=== PATIENT | male | born 1965 | race Caucasian/White ===

== ENCOUNTER 2018-11-04 12:10 | Inpatient (IN) ==
--- NOTE | 2018-11-04 13:01 | ED ---
HPI General Chief Complaint: Altered Mental Status Stated Complaint: ams Time Seen by Provider: 11/04/18 12:36 History of Present Illness HPI narrative: This patient was pulled over by police because he was driving on the wrong side of the road. Paramedics brought him here for altered mental status. The patient is very confused. He does not give a good history or review of systems. He reports that he used to be a heavy alcohol drinker but no longer does. Denies drug use. Denies headache or fever. He does not recognize that he is confused. He says that 4 days ago he fell off a ladder onto his left side. He did not get evaluated. His left side is covered in bruises including his abdomen and back and the left leg. He did not have head injury and has no head or neck pain. Symptoms are severe. Duration is unknown. History is limited. 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 Related Data Home Medications Medication Instructions Recorded Confirmed pantoprazole 40 mg PO DAILY 11/04/18 11/04/18 propranolol 40 mg PO BID 11/04/18 11/04/18 Allergies Allergy/AdvReac Type Severity Reaction Status Date / Time No Known Allergies Allergy Verified 11/04/18 12:15 Review of Systems ROS: all other systems reviewed are negative [facility] Social History Social History Substance History: No History of Abuse Smoking Status: Never smoker How Often Do You Have a Drink Containing Alcohol: Never Recent Travel in [facility] within the Last 8 Weeks: No Recent Out of Country Travel within the Last 8 Weeks: No Immunization History Tetanus Immunization: <5 Years Exam Narrative Exam Narrative: GENERAL: Confused jaundiced patient in no apparent distress. SKIN: Focused skin assessment reveals tiny little pustules on the backs of both hands. He has diffuse jaundice. Skin is Warm and dry. HEAD: Atraumatic. Normocephalic. EYES: Pupils equal and round. Prominent bilateral scleral icterus. No injection or drainage. ENT: No nasal bleeding or discharge. Mucous membranes pink and moist. NECK: Trachea midline. No JVD. No midline tenderness. CARDIOVASCULAR: Regular rate and rhythm. No murmur appreciated. RESPIRATORY: No accessory muscle use. Clear to auscultation. Breath sounds equal bilaterally. GASTROINTESTINAL: Abdomen soft, non-tender, nondistended. Hepatic and splenic margins not palpable. MUSCULOSKELETAL: Has bruising and swelling and a healing scabbed old wound of the mid left tibia. No clubbing. No cyanosis. Bilateral lower extremity edema from the knees down NEUROLOGICAL: Awake and alert. He is very confused. He does not know the month or the year. Motor grossly within normal limits. Normal speech. PSYCHIATRIC: Disinterested and unconcerned mood and affect; insight and judgment poor . Course Initial Documented Vital Signs Temperature 97.5 F L 11/04/18 12:10 Pulse Rate 67 11/04/18 12:10 Respiratory Rate 14 11/04/18 12:10 Blood Pressure 113/59 L 11/04/18 12:10 Pulse Oximetry 98 11/04/18 12:10 Last Documented Vital Signs Temperature 97.5 F L 11/04/18 12:10 Pulse Rate 71 11/04/18 14:45 Respiratory Rate 14 11/04/18 14:45 Blood Pressure 93/50 L 11/04/18 14:45 Pulse Oximetry 100 11/04/18 14:45 Procedures Central Line Placement Right Femoral: Time Out Performed: No Patient Placed on Monitor/Pulse Ox: Yes MD Prep: mask, gown and gloves Central Line Prep: Chlorhexidine scrub and sterile drapes applied Ultrasound Used for Placement: Yes Central Line Lumen Inserted: triple Post Procedure: good blood return, all ports aspirated, flushed, capped and sterile dressing applied Patient Tolerated Procedure: well Complications: none Additional Comments: Patient is so extremely confused that there was no value to written consent forms. He verbally agreed but he does not understand what is going on. No other family members available. He emergently needs placement as he is critically ill. So therefore I had to proceed on his behalf. Critical Care Time Critical Care Time: Yes Total Critical Care Time: 80 Attestation: Aggregate critical care time was 80 minutes. Time to perform other separately billable procedures was not included in the critical care time. My time did not include minutes spent treating any other patients simultaneously or on activities that did not directly contribute to the patient's treatment. The services I provided to this patient were to treat and/or prevent clinically significant deterioration that could result in: Hemorrhagic shock, intracranial hemorrhage, severe metabolic derangement I provided critical care services requiring my management, as noted below: Chart data review, documentation time, medication orders and management, vital sign assessments/reviewing monitor data, ordering and reviewing lab tests, ordering and interpreting/reviewing x-rays and diagnostic studies, care of the patient and discussion of the patient with the admitting physicians. Medical Decision Making MDM Narrative Medical decision making narrative: 53-year-old male with jaundice and confusion. My suspicion is hepatic encephalopathy from liver cirrhosis. Also of concern is this fall from a ladder in a patient likely with thrombocytopenia. I have ordered a massive workup to evaluate both from a standpoint of his altered mental status as well as his fall. CBC reveals significant anemia with hemoglobin of 7.3 as well as thrombocytopenia Rectal exam reveals Hemoccult negative brown stool No evidence of active GI bleed Metabolic profile reveals major abnormalities. He has critical hypo-natremia of 123. This certainly would explain altered mental status. I am going to start 3% sodium chloride solution 25 cc an hour. He has hypokalemia of 3.1. He has renal insufficiency with creatinine 1.6. I have no prior labs to compare to. Chest and tibia x-rays are negative Starting transfusion of 2 units packed red cells. He has borderline hypotension at 100 systolic. Nursing staff could not place IV access. So I placed a right femoral central line under ultrasound guidance. See procedure note. Patient will be going to CT scan now that we have IV access. CT brain is negative. CT of abdomen pelvis shows cirrhotic type changes with some periportal mesenteric edema. Patient is is critically ill and I have placed a call to the block trimmer to discuss. Blood pressure is now 93/50. I have reviewed his situation with his who has now arrived. He is an active alcoholic and heavy drinker. Medical Screen Exam Complete: Yes Emergency Medical Condition: Yes Lab Data Lab results reviewed: Yes I reviewed the patient's lab results. Lab results narrative: His labs are critically abnormal. He is anemic and thrombocytopenic and has low sodium and potassium and renal insufficiency Result diagrams: 11/04/18 12:50 11/04/18 12:50 Lab Results 11/04/18 11/04/18 11/04/18 Range/Units 12:45 12:50 12:50 CBC w Diff WBC (4.0-11.0) th/mm3 RBC (4.50-5.90) mil/mm3 Hgb (13.0-17.0) gm/dL Hct (39.0-51.0) % MCV (80.0-100.0) fL MCH (27.0-34.0) pg MCHC (32.0-36.0) % RDW (11.6-17.2) % Plt Count (150-450) th/mm3 MPV (7.0-11.0) fL Neut % (Auto) (16.0-70.0) % Lymph % (Auto) (9.0-44.0) % Ford % (Auto) (0.0-8.0) % Eos % (Auto) (0.0-4.0) % Baso % (Auto) (0.0-2.0) % Neut # (Auto) (1.8-7.7) th/mm3 Lymph # (Auto) (1.0-4.8) th/mm3 Ford # (Auto) (0.0-0.9) th/mm3 Eos # (Auto) (0.0-0.4) th/mm3 Baso # (Auto) (0.0-0.2) th/mm3 WBC Differential Differential Comment PT 23.7 H (9.8-11.6) sec INR 2.3 Ratio APTT 42.3 H (23.4-31.7) sec Sodium 123 L* (136-145) meq/L Potassium 3.1 L (3.5-5.1) meq/L Chloride 87 L (98-107) meq/L Carbon Dioxide 25.0 (21.0-32.0) meq/L Anion Gap 11 (5-15) meq/L BUN 20 H (7-18) mg/dL Creatinine 1.60 H (0.60-1.30) mg/dL Estimated GFR 46 L (>89) mL/min Random Glucose 82 (74-106) mg/dL Calcium 7.4 L* (8.5-10.1) mg/dL Calcium Adj for Albumin 8.8 (8.5-10.1) mg/dL Magnesium 1.7 (1.5-2.5) mg/dL Total Bilirubin 13.0 H (0.2-1.0) mg/dL AST 154 H (15-37) U/L ALT 60 (12-78) U/L Alkaline Phosphatase 87 (45-117) U/L Ammonia (11-32) mcmol/L Total Protein 8.2 (6.4-8.2) g/dL Albumin 2.2 L (3.4-5.0) g/dL TSH 2.390 (0.358-3.740) uIU/mL Serum Alcohol Less than 3 (0-5) mg/dL MTS Gel Crossmatch See Detail 11/04/18 11/04/18 Range/Units 12:50 12:50 CBC w Diff Auto diff final WBC 9.1 (4.0-11.0) th/mm3 RBC 2.00 L (4.50-5.90) mil/mm3 Hgb 7.3 L (13.0-17.0) gm/dL Hct 21.6 L (39.0-51.0) % MCV 107.9 H (80.0-100.0) fL MCH 36.2 H (27.0-34.0) pg MCHC 33.6 (32.0-36.0) % RDW 17.9 H (11.6-17.2) % Plt Count 103 L (150-450) th/mm3 MPV 7.8 (7.0-11.0) fL Neut % (Auto) 84.0 H (16.0-70.0) % Lymph % (Auto) 7.8 L (9.0-44.0) % Ford % (Auto) 7.4 (0.0-8.0) % Eos % (Auto) 0.1 (0.0-4.0) % Baso % (Auto) 0.7 (0.0-2.0) % Neut # (Auto) 7.6 (1.8-7.7) th/mm3 Lymph # (Auto) 0.7 L (1.0-4.8) th/mm3 Ford # (Auto) 0.7 (0.0-0.9) th/mm3 Eos # (Auto) 0.0 (0.0-0.4) th/mm3 Baso # (Auto) 0.1 (0.0-0.2) th/mm3 WBC Differential . Differential Comment . PT (9.8-11.6) sec INR Ratio APTT (23.4-31.7) sec Sodium (136-145) meq/L Potassium (3.5-5.1) meq/L Chloride (98-107) meq/L Carbon Dioxide (21.0-32.0) meq/L Anion Gap (5-15) meq/L BUN (7-18) mg/dL Creatinine (0.60-1.30) mg/dL Estimated GFR (>89) mL/min Random Glucose (74-106) mg/dL Calcium (8.5-10.1) mg/dL Calcium Adj for Albumin (8.5-10.1) mg/dL Magnesium (1.5-2.5) mg/dL Total Bilirubin (0.2-1.0) mg/dL AST (15-37) U/L ALT (12-78) U/L Alkaline Phosphatase (45-117) U/L Ammonia 46 H (11-32) mcmol/L Total Protein (6.4-8.2) g/dL Albumin (3.4-5.0) g/dL TSH (0.358-3.740) uIU/mL Serum Alcohol (0-5) mg/dL MTS Gel Crossmatch Imaging Data Attestation: I personally reviewed and interpreted this imaging study as follows : My impression: Brain CT negative. Chest x-ray negative. Tibia x-ray negative. Abdomen and pelvis CT shows cirrhotic changes with some periportal edema Radiologist's impression: Abdomen/Pelvis CT 11/04/18 12:43 CONCLUSION: 1. I don't see an intrahepatic biliary duct dilatation. Induration in the mesentery and around the pancreas worse in the head of the pancreas. 2. Pancreatitis would be consideration 3. The edema extends throughout the mesentery suggesting portal hypertension and hepatic failure. Correlation suggested. 4. Focal mass in the pancreas cannot be entirely excluded because of edema. Chest X-Ray 11/04/18 12:43 CONCLUSION: 1. No acute cardiopulmonary disease. Head CT 11/04/18 12:43 CONCLUSION: 1. Negative for acute process . Tibia/Fibula X-Ray 11/04/18 12:48 CONCLUSION: 1. No acute fracture or radiopaque foreign bodies. Discharge Plan Discharge Disposition Patient Disposition: ED Admit(ED Internal Use Only) Discharge Details Diagnosis: Altered mental status, Hyponatremia, Anemia, Alcoholic cirrhosis of liver with ascites Physicians Team ED Provider: Naif Murillo Primary Care Provider: UNKNOWN, Rxs /Orders / Referrals /Forms Prescriptions: No Action propranolol 10 mg Tablet 40 mg PO BID RF: 0 pantoprazole 40 mg Tablet,Delayed Release (Dr/Ec) 40 mg PO DAILY RF: 0 Discharge Interventions Interventions: Vital Signs Last Done: 11/04/18 14:45 Status ED Status: With Doctor
[2018-11-04 13:04] LABS: Baso # (Auto) 0.1 th/mm3 (0.0-0.2); Baso % (Auto) 0.7 % (0.0-2.0); Eos % (Auto) 0.1 % (0.0-4.0); Hematocrit 21.6 % (39.0-51.0); Hemoglobin 7.3 gm/dL (13.0-17.0); Lymph # (Auto) 0.7 th/mm3 (1.0-4.8); Lymph % (Auto) 7.8 % (9.0-44.0); Mean Corpuscular HGB Conc 33.6 % (32.0-36.0); Mean Corpuscular Hemoglobin 36.2 pg (27.0-34.0); Mean Corpuscular Volume 107.9 fL (80.0-100.0); Mean Platelet Volume 7.8 fL (7.0-11.0); Mono # (Auto) 0.7 th/mm3 (0.0-0.9); Mono % (Auto) 7.4 % (0.0-8.0); Neut # (Auto) 7.6 th/mm3 (1.8-7.7); Platelet Count 103 th/mm3 (150-450); Red Cell Distribution Width 17.9 % (11.6-17.2); White Blood Count 9.1 th/mm3 (4.0-11.0)
[2018-11-04 13:14] LABS: Activated Partial Thrombo Time 42.3 sec (23.4-31.7); INR 2.3 Ratio; Prothrombin Time 23.7 sec (9.8-11.6)
[2018-11-04 13:15] LABS: Chloride 87 meq/L (98-107); Potassium 3.1 meq/L (3.5-5.1)
[2018-11-04 13:22] LABS: Alanine Aminotransferase 60 U/L (12-78); Albumin 2.2 g/dL (3.4-5.0); Alkaline Phosphatase 87 U/L (45-117); Anion Gap 11 meq/L (5-15); Aspartate Aminotransferase 154 U/L (15-37); Blood Urea Nitrogen 20 mg/dL (7-18); Calcium 7.4 mg/dL (8.5-10.1); Glomerular Filtration Rate 46 mL/min (>89); Glucose,Random 82 mg/dL (74-106); Magnesium 1.7 mg/dL (1.5-2.5); Total Protein 8.2 g/dL (6.4-8.2)
[2018-11-04 13:23] LABS: Sodium 123 meq/L (136-145)
--- NOTE | 2018-11-04 13:26 | XR ---
EXAM DATE: 11/04/2018 1:19 PM EST AGE/SEX: 53 years / Male INDICATIONS: Post fall, Chest Pain CLINICAL DATA: This is the patient's initial encounter. Patient reports that signs and symptoms have been present for 1 day and indicates a pain score of 0/10. MEDICAL/SURGICAL HISTORY: None. None. COMPARISON: No prior exams available for comparison. FINDINGS: A single AP view of the chest demonstrates the lungs to be symmetrically aerated without evidence of mass, infiltrate or effusion. The cardiomediastinal contours are unremarkable. Osseous structures a re intact. CONCLUSION: 1. No acute cardiopulmonary disease. Electronically signed by: Avni Cárdenas MD 11/04/2018 1:24 PM EST
--- NOTE | 2018-11-04 13:34 | XR ---
EXAM DATE: 11/04/2018 1:19 PM EST AGE/SEX: 53 years / Male INDICATIONS: Left lower leg pain, Laceration on anterior side of leg CLINICAL DATA: This is the patient's initial encounter. Patient reports that signs and symptoms have been present for 1 day and indicates a pain score of 0/10. MEDICAL/SURGICAL HISTORY: None. None. COMPARISON: No prior exams available for comparison. FINDINGS: Bony structures are intact and in normal alignment. Osseous density is normal. Soft tissues are unre markable. No radiopaque foreign bodies seen. CONCLUSION: 1. No acute fracture or radiopaque foreign bodies. Electronically signed by: Avni Cárdenas MD 11/04/2018 1:33 PM EST
--- NOTE | 2018-11-04 14:24 | CT ---
EXAM DATE: 11/04/2018 2:22 PM EST AGE/SEX: 53 years / Male INDICATIONS: Altered mental status. Pulled over for erratic driving. Poor historian. CLINICAL DATA: This is the patient's initial encounter. Patient reports that signs and symptoms have been present for 1 day and indicates a pain score of Nonresponsive. MEDICAL/SURGICAL HISTORY: None. None. RADIATION DOSE: 59.98 CTDI (mGy) COMPARISON: No prior exams available for comparison. TECHNIQUE: CT of the head without contrast. Using automated exposure control and adjustment of the mA and/or kV according to patient size, radiation dose was kept as low as reasonably achievable to ob tain optimal diagnostic quality images. DICOM format image data is available electronically for revi ew and comparison. FINDINGS: Cerebrum: The ventricles are normal for age. No evidence of midline shift, mass lesion, hemorrhage or acute infarction. No extraaxial fluid collections are seen. Posterior Fossa: The cerebellum and brainstem are intact. The 4th ventricle is midline. The cerebe llopontine angle is unremarkable. Extracranial: The visualized portion of the orbits is intact. Skull: The calvaria is intact. No evidence of skull fracture. CONCLUSION: 1. Negative for acute process . Electronically signed by: Carlos Valentin MD 11/04/2018 2:23 PM EST
--- NOTE | 2018-11-04 14:49 | CT ---
EXAM DATE: 11/04/2018 2:31 PM EST AGE/SEX: 53 years / Male INDICATIONS: Patient is notably jaundice. Altered mental status and a poor historian. CLINICAL DATA: This is the patient's initial encounter. Patient reports that signs and symptoms have been present for 1 day and indicates a pain score of Nonresponsive. MEDICAL/SURGICAL HISTORY: None. None. ORAL CONTRAST: No oral contrast ingested. RADIATION DOSE: 5.41 CTDI (mGy) COMPARISON: No prior exams available for comparison. TECHNIQUE: Multiple contiguous axial images were obtained through the abdomen and pelvis following b olus infusion of 85 ml Omnipaque 350 (iohexol) nonionic water-soluble contrast as a single exam dos e. No oral contrast ingested. Using automated exposure control and adjustment of the mA and/or kV ac cording to patient size, radiation dose was kept as low as reasonably achievable to obtain optimal di agnostic quality images. DICOM format image data is available electronically for review and comparis on. FINDINGS: The lower lungs are clear. The liver is small and nodular without intrahepatic biliary ductal dilatation. Spleen is prominent. Gallbladder is partially collapsed. There is mesenteric induration that involves most of the pancreas and peripancreatic fat. This indura tion extends along the duodenum involves the head of the pancreas. The SMA and SMV are patent. The po rtal vein is small and patent. There is mesenteric edema extending into the right lower quadrant with trace ascites evident. The bladder prostate and seminal vesicles unremarkable Abdominal shea intact Moderate vascular calcifications are evident. Review of bone windows reveals only degenerative changes. CONCLUSION: 1. I don't see an intrahepatic biliary duct dilatation. Induration in the mesentery and around the p ancreas worse in the head of the pancreas. 2. Pancreatitis would be consideration 3. The edema extends throughout the mesentery suggesting portal hypertension and hepatic failure. Co rrelation suggested. 4. Focal mass in the pancreas cannot be entirely excluded because of edema. Electronically signed by: Carlos Valentin MD 11/04/2018 2:47 PM EST
[2018-11-04] MEDS ORDERED: Sodium Chlor 0.9% Inj 250 ML IV.SIG SCH (15:00)
[2018-11-04] MEDS ORDERED: Bisacodyl 10 MG Supp RECTAL PRN (15:05)
[2018-11-04] MEDS ORDERED: Sod Chloride 0.9% Inj 1,000 ML IV.CONT SCH (15:15)
[2018-11-04 15:51] LABS: Creatine Kinase 268 U/L (39-308); Lipase 260 U/L (73-393)
[2018-11-04] MEDS ORDERED: Magnesium Sulfate Inj 2 GM in Sodium Chlor 0.9% Inj 96 ML IV.SIG ONE (16:00)
[2018-11-04] MEDS ORDERED: LORazepam 1 MG Tablet PO PRN (16:10)
[2018-11-04] MEDS ORDERED: Haloperidol Inj 5 MG/ML Ampul IV.PUSH PRN (16:10)
[2018-11-04] MEDS ORDERED: Norepinephrine Inj 16 MG in Sodium Chlor 0.9% Inj 234 ML IV.CONT PRN (17:00)
[2018-11-04] MEDS ORDERED: Potassium Chlor 20 mEq Premix 20 MEQ/100 ML PIGGYBACK IV.SIG ONE (17:32)
[2018-11-04] MEDS ORDERED: Phytonadione Inj 10 MG in Sodium Chlor 0.9% Inj 50 ML IV.SIG ONE (17:36)
--- NOTE | 2018-11-04 17:52 | P.HPCC ---
History of Present Illness Service: Critical care medicine Primary Care Physician: UNKNOWN Chief Complaint: Altered mental status History of Present Illness: This is a 53-year-old male. Admission 11/04/2018. Past medical history includes EtOH abuse and hypertension. He is unable to give any additional information the present time. His is currently unavailable. Today, the patient was pulled over because he was driving on the wrong side of the road. Paramedics brought him to [facility] emergency department for altered mental status. He reports that he used to be a heavy alcohol drinker but has not consumed alcohol in 3 days. Denies drug use. Denies headache or fever. He does not recognize that he is confused. He says that 4 days ago he fell off a ladder onto his left side. He did not get evaluated. His left side is covered in bruises including his abdomen and back and the left leg. He did not have head injury and has no head or neck pain. CT of the head revealed no acute intracranial findings. CT of the abdomen/ pelvis revealed mesenteric induration perinephric fat. The SMA and SMV are patent. Cannot rule out pancreatic head mass. Patient was transferred to [facility] for further evaluation treatment. On arrival, patient has large ecchymosis involving his left flank, right hip. Patient has an bites on his wrist bilaterally. He is oriented to person and time only. Not place. Moving all 4 extremity spontaneously. Blood sugar 78. Urine toxicology screen pending. - Diagnosis (1) Hypopotassemia (2) Total bilirubin, elevated (3) Thrombocytopenia (4) Macrocytic anemia (5) Hyperammonemia (6) Hypoalbuminemia (7) ETOH abuse (8) Altered mental status (9) Hyponatremia (10) Alcoholic cirrhosis of liver with ascites (11) Elevated AST (SGOT) Inpatient Certification: I certify that the inpatient services were ordered in accordance with Medicare regulations governing the order. This includes certification that hospital inpatient services are reasonable and necessary and in the case of services not specified as inpatient-only under 42 CFR 419.22(n), that they are appropriately provided as inpatient services in accordance to with the 2-midnight benchmark under 43 CFR 412.3(e) Estimated Total Length of Stay (Days): 5 Plans for Post Hospital Care: Not yet determined Review of Systems unobtainable due to mental condition PMFSH - History History Provided By: Patient - Medical History Medical History: Medical History (Last Reviewed 11/04/18 @ 12:17 by Jayashree Luu RN) Medical history unknown - Surgical History Surgical History: Surgical History (Last Updated 11/04/18 @ 17:43 by Neo Sarmiento MD) Surgical history unknown - Family History Family History: Family History (Last Updated 11/04/18 @ 17:43 by Neo Sarmiento MD) Other Family history unknown - Social History I have reviewed the patient's Social History: Yes - Tobacco History Second Hand Smoke Exposure: No Smoking Status: Never smoker - Alcohol History How Often Do You Have a Drink Containing Alcohol: 2 to 4 times a month - Substance Use History Substance History: Unable to Obtain - Travel History History of Recent Travel: Yes Recent Travel in the [place] Within the Last 8 Weeks: No Recent Travel Out of the Country Within the Last 8 Weeks: No - Immunization History Tetanus Immunization: <5 Years Medications and Allergies Active Medications: Active Medications Al Hydroxide/Mg Hydroxide (Milk Of Magnvinh Liq) 30 ml PO Q12H PRN PRN Reason: Mild Constipation Albuterol (Albuterol Neb (Prn)) 2.5 mg NEB Q2HR NEB PRN PRN Reason: SHORTNESS OF BREATH/WHEEZING Albuterol (Duoneb Neb (Otilia)) 1 ampul NEB Q4HR NEB OTILIA Bisacodyl (Dulcolax Supp) 10 mg RECTAL DAILY PRN PRN Reason: SEVERE CONSITIPATION Chlorhexidine Gluconate (Chlorhexidine 2% Cloth) 3 pack TOPICAL DAILY@0400 OTILIA Stop: 11/10/18 03:59 Chlorhexidine Gluconate (Chlorhexidine 2% Cloth) 3 pack TOPICAL DAILY@0400 PRN PRN Reason: Extra cloth needed Stop: 11/10/18 03:59 Flumazenil (Romazecon Inj) 0.2 mg IV.PUSH Q1M PRN PRN Reason: OVERSEDATION Haloperidol Lactate (Haldol Inj) 1 mg IV.PUSH Q15M PRN PRN Reason: for severe agitation Sodium Chloride (Sodium Chloride 3% Inj) 250 mls @ 25 mls/hr IV.SIG ONCE ONE Stop: 11/05/18 00:01 Last Admin: 11/04/18 14:39 Dose: 25 mls/hr Sodium Chloride (Ns Inj) 250 mls @ 15 mls/hr IV.SIG ONCE OTILIA Stop: 11/05/18 07:39 Sodium Chloride (Ns Inj) 1,000 mls @ 84 mls/hr IV.CONT .[id number] OTILIA Magnesium Sulfate 2 gm/ Sodium (Chloride) 100 mls @ 50 mls/hr IV.SIG ONCE ONE Stop: 11/04/18 17:59 Last Admin: 11/04/18 15:40 Dose: 50 mls/hr Norepinephrine Bitartrate 16 (mg/ Sodium Chloride) 250 mls @ 1.87 mls/hr IV.CONT TITRATE PRN; Protocol PRN Reason: See Protocol Multivitamins 10 ml/ Thiamine HCl 100 mg/ Folic Acid 1 mg/Sodium Chloride 511.2 mls @ 125 mls/hr IV.SIG Q24H OTILIA Stop: 11/07/18 13:06 Phytonadione 10 mg/ Sodium (Chloride) 51 mls @ 102 mls/hr IV.SIG ONCE ONE Stop: 11/04/18 18:05 Lactulose (Lactulose Liq) 30 ml PO DAILY PRN PRN Reason: SEVERE CONSITIPATION Lorazepam (Ativan) 1 mg PO Q4H PRN PRN Reason: for CIWA 8-10 Lorazepam (Ativan) 2 mg PO Q2H PRN PRN Reason: for CIWA 11-14 Lorazepam (Ativan Inj) 2 mg IV.PUSH Q2H PRN PRN Reason: for CIWA 11-14 Lorazepam (Ativan Inj) 2 mg IV.PUSH Q15M PRN PRN Reason: for CIWA > 20 Lorazepam (Ativan Inj) 1 mg IV.PUSH Q4H PRN PRN Reason: for CIWA 8-10 Lorazepam (Ativan Inj) 2 mg IV.PUSH Q1H PRN PRN Reason: for CIWA 15-20 Ondansetron HCl (Zofran Inj) 4 mg IV.PUSH Q6H PRN PRN Reason: NAUSEA OR VOMITING Pantoprazole Sodium (Protonix Inj) 40 mg IV.PUSH DAILY [facility] Senna/Docusate Sodium (Denise-Colace) 1 tab PO BID [facility] Sennosides (Senokot) 17.2 mg PO Q12H PRN PRN Reason: Moderate Constipation Sodium Chloride (Ns Flush) 2 ml IV.FLUSH BID [facility] Sodium Chloride (Ns Flush) 2 ml IV.FLUSH PRN PRN PRN Reason: FLUSH AFTER USING IV ACCESS Terbutaline Sulfate (Brethine Inj) 1 mg SQ UNSCH PRN PRN Reason: For Extravasation Allergies Allergy/AdvReac Type Severity Reaction Status Date / Time No Known Allergies Allergy Verified 11/04/18 12:15 Home Medications Medication Instructions Recorded Confirmed Type pantoprazole 40 mg PO DAILY 11/04/18 11/04/18 History propranolol 40 mg PO BID 11/04/18 11/04/18 History Results - Labs CBC & Chem 7: 11/04/18 12:50 11/04/18 12:50 Labs: Short CBC 11/04/18 Range/Units 12:50 WBC 9.1 (4.0-11.0) th/mm3 Hgb 7.3 L (13.0-17.0) gm/dL Hct 21.6 L (39.0-51.0) % Plt Count 103 L (150-450) th/mm3 BMP 11/04/18 12:50 Sodium 123 L* Potassium 3.1 L Chloride 87 L Carbon Dioxide 25.0 BUN 20 H Creatinine 1.60 H Calcium 7.4 L* Cardiac Enzymes 11/04/18 Range/Units 12:50 Total Creatine Kinase 268 (39-308) U/L Liver Function 11/04/18 Range/Units 12:50 Total Bilirubin 13.0 H (0.2-1.0) mg/dL AST 154 H (15-37) U/L ALT 60 (12-78) U/L Alkaline Phosphatase 87 (45-117) U/L Albumin 2.2 L (3.4-5.0) g/dL - Imaging Impressions Abdomen/Pelvis CT 11/04/18 12:43 CONCLUSION: 1. I don't see an intrahepatic biliary duct dilatation. Induration in the mesentery and around the pancreas worse in the head of the pancreas. 2. Pancreatitis would be consideration 3. The edema extends throughout the mesentery suggesting portal hypertension and hepatic failure. Correlation suggested. 4. Focal mass in the pancreas cannot be entirely excluded because of edema. Chest X-Ray 11/04/18 12:43 CONCLUSION: 1. No acute cardiopulmonary disease. Head CT 11/04/18 12:43 CONCLUSION: 1. Negative for acute process . Tibia/Fibula X-Ray 11/04/18 12:48 CONCLUSION: 1. No acute fracture or radiopaque foreign bodies. Exam Vital signs: Vital Signs 11/04/18 12:10 11/04/18 12:50 11/04/18 13:15 Temperature 97.5 F L Pulse Rate 67 72 68 Respiratory Rate 14 12 Blood Pressure 113/59 L 101/55 L Pulse Oximetry 98 98 100 11/04/18 13:16 11/04/18 13:35 11/04/18 14:45 Temperature Pulse Rate 65 68 71 Respiratory Rate 18 14 14 Blood Pressure 101/55 L 101/61 93/50 L Pulse Oximetry 100 98 100 11/04/18 15:00 11/04/18 15:15 11/04/18 15:30 Temperature Pulse Rate 62 69 68 Respiratory Rate 14 12 12 Blood Pressure 95/51 L 109/50 L 98/48 L Pulse Oximetry 97 98 100 11/04/18 16:45 Temperature Pulse Rate 68 Respiratory Rate 14 Blood Pressure 90/51 L Pulse Oximetry 98 Intake & Output 11/03/18 11/04/18 11/04/18 18:59 06:59 18:59 Weight 69.1 kg - Constitutional no acute distress - Routine HEENT Exam Head: Present: normocephalic, atraumatic Eye: Present: EOMI, PERRL, conjunctival icterus ENT: Present: mucous membranes moist - Routine Neck Exam Present: supple, full ROM. Absent: JVD, tenderness - Routine Chest/Breast/Axilla Exam Chest wall: Absent: tenderness Breast: Absent: tenderness Axillae: Absent: lymphadenopathy - Routine Respiratory Exam Present: CTA bilaterally. Absent: accessory muscle use - Routine Cardiovascular Exam Present: RRR, S1, S2. Absent: murmur - Routine Abdominal Exam Present: normoactive bowel sounds, distended. Absent: tenderness, wound - Routine Extremities Exam Present: edema. Absent: cyanosis, clubbing, pallor - Routine Skin Exam Present: intact, ecchymosis - Routine Neurological Exam Present: alert, CN II-XII intact. Absent: oriented X3 (Oriented to person and time), sensory deficit, motor deficit Septic Shock Reassessment Septic shock perfusion: reassessment completed Caprini VTE Risk Assessment Caprini VTE Risk Assessment: Moderate/High Risk (score >= 2) VTE Pharmacological Exception Reason: Coagulopathy,INR elevated Caprini Risk Assessment Model: Point Value = 1 Point Value = 2 Point Value = 3 Point Value = 5 Age 41-60 Minor surgery BMI > 25 kg/m2 Swollen legs Varicose veins or History of unexplained or recurrent spontaneous Oral contraceptives or hormone replacement Sepsis (< 1 month) Serious lung disease, including pneumonia (< 1 month) Abnormal pulmonary function Acute myocardial infarction Congestive heart failure (< 1 month) History of inflammatory bowel disease Medical patient at bed rest Age 61-74 Arthroscopic surgery Major open surgery (> 45 min) Laparoscopic surgery (> 45 min) Malignancy Confined to bed (> 72 hours) Immobilizing plaster cast Central venous access Age >= 75 History of VTE Family history of VTE Factor V Leiden Prothrombin [id number] Lupus anticoagulant Anticardiolipin antibodies Elevated serum homocysteine Heparin-induced thrombocytopenia Other congenital or acquired thrombophilia Stroke (< 1 month) Elective arthroplasty Hip, pelvis, or leg fracture Acute spinal cord injury (< 1 month) Prophylaxis Regimen: Total Risk Factor Score Risk Level Prophylaxis Regimen 0-1 Low Early ambulation 2 Moderate Order ONE of the following: *Sequential Compression Device (SCD) *Heparin 5000 units SQ BID 3-4 Higher Order ONE of the following medications: *Heparin 5000 units SQ TID *Enoxaparin/Lovenox 40 mg SQ daily (WT < 150 kg, CrCl > 30 mL/min) *Enoxaparin/Lovenox 30 mg SQ daily (WT < 150 kg, CrCl > 10-29 mL/min) *Enoxaparin/Lovenox 30 mg SQ BID (WT < 150 kg, CrCl > 30 mL/min) AND/OR *Sequential Compression Device (SCD) 5 or more Highest Order ONE of the following medications: *Heparin 5000 units SQ TID (Preferred with Epidurals) *Enoxaparin/Lovenox 40 mg SQ daily (WT < 150 kg, CrCl > 30 mL/min) *Enoxaparin/Lovenox 30 mg SQ daily (WT < 150 kg, CrCl > 10-29 mL/min) *Enoxaparin/Lovenox 30 mg SQ BID (WT < 150 kg, CrCl > 30 mL/min) AND *Sequential Compression Device (SCD) Assessment and Plan - Problem List (1) Hypopotassemia Code(s): E87.6 - Hypokalemia Status: Acute (2) Total bilirubin, elevated Code(s): R17 - Unspecified jaundice Status: Acute (3) Thrombocytopenia Code(s): D69.6 - Thrombocytopenia, unspecified Status: Acute (4) Macrocytic anemia Code(s): D53.9 - Nutritional anemia, unspecified Status: Acute (5) Hyperammonemia Code(s): E72.20 - Disorder of urea cycle metabolism, unspecified Status: Acute (6) Hypoalbuminemia Code(s): E88.09 - Other disorders of plasma-protein metabolism, not elsewhere classified Status: Acute (7) ETOH abuse Code(s): F10.10 - Alcohol abuse, uncomplicated Status: Acute (8) Altered mental status Code(s): R41.82 - Altered mental status, unspecified Status: Acute (9) Hyponatremia Code(s): E87.1 - Hypo-osmolality and hyponatremia Status: Acute (10) Alcoholic cirrhosis of liver with ascites Code(s): K70.31 - Alcoholic cirrhosis of liver with ascites Status: Acute (11) Elevated AST (SGOT) Code(s): R74.0 - Nonspecific elevation of levels of transaminase and lactic acid dehydrogenase [LDH] Status: Acute - Assessment and Plan Plan: Neuro/Psych: Acute encephalopathy likely secondary to elevated ammonia EtOH abuse CT brain revealed no acute intracranial abnormalities CIWA protocol initiated Vitamin bag daily times 3 days. No acetaminophen with elevated LFTs Monitor for DTs CV: Received normal saline 1 L at [facility]. As needed norepinephrine all central lines in place Follow-up on lactate, CPK, troponin EKG and Currently D5 normal saline at 100 cc an hour Holding propranolol 40 mg twice daily/home medication Resp: Nasal cannula to maintain saturations greater than equal 92% Incentive spirometry while awake Albuterol/ipratropium aerosols every 4 hours with albuterol aerosols every 2 hours as needed dyspnea X-ray chest on admission revealed no acute acute cardia pulmonary findings GI: Elevated total bilirubin Elevated AST Elevated ammonia Hypoalbuminemia Mesenteric induration on CT abdomen/pelvis N.p.o. status except for medications Pantoprazole for GI prophylaxis Docusate serum/senna 1 tablet twice daily for bowel regimen Lactulose 30 cc twice daily/recheck ammonia level in a.m. CT abdomen/pelvis revealed mesenteric induration along with peritoneal fat. No intra-hepatic biliary ductal dilatation. SMA/SMV are patent. Currently has no abdominal pain. Lactic acid pending : Straight catheterization as needed Endo: Sliding scale insulin Accu-Cheks to maintain euglycemia/every 6 hours aspart insulin TSH was 2.39 Renal: Acute kidney injury unknown baseline Monitor urine output Accurate I's and O's CT abdomen/pelvis revealed no signs of hydronephrosis Check urine eosinophils, sodium and creatinine Heme: Macrocytic anemia Thrombocytopenia Coagulopathy Transfuse 2 units PRBCs 1 FFP. 10 mg vitamin K IV x1. Recheck coags in a.m. with fibrinogen Check CBC in a.m. 09/05 Hemoccult ordered ID: No signs of active bleeding. Monitor for signs of and symptomatology of infection FEN: Hypopotassemia Hyponatremia 40 mEq potassium chloride IV x1 now. Discontinue hypertonic saline Replace electrolytes as clinically indicated per ICU electrolyte protocol Currently D5 normal saline at 100 cc an hour MSK: Large right flank ecchymosis PT evaluate and treat gait assessment Left tib/fib shows no signs of fracture Access: -Utilize peripheral AP will discontinue right femoral central line Prophylaxis -GI -pantoprazole -DVT -SCD/holding pharmacologic prophylaxis in light of elevated INR/PTT Level 3 admission Code Status: Full code Discussed Condition With: Patient. is currently unavailable. Care plan discussed and all questions answered. (8) Altered mental status Qualifiers: Altered mental status type: delirium Qualified Code(s): R41.0 - Disorientation, unspecified
--- NOTE | 2018-11-04 18:53 | US ---
EXAM DATE: 11/04/2018 6:45 PM EST AGE/SEX: 53 years / Male INDICATIONS: Elevated lab values. CLINICAL DATA: This is the patient's initial encounter. Patient reports that signs and symptoms have been present for 1 day and indicates a pain score of 3/10. MEDICAL/SURGICAL HISTORY: . Unable to obtain med history. . Unable to obtain surgical history. COMPARISON: [facility], CT ABDOMEN & PELVIS W CONTRAST, 11/04/2018. . MEASUREMENTS: Liver:__ 16.3 cm. Common Bile Duct:__ Nonvisualized. Right Kidney:__ 11.4 x 4.7 x 6.4 cm. FINDINGS: Liver: Increased echogenicity without focal lesion or ductal dilatation. Portal Vein: Pulsatile flow seen in portal vein. Common Duct: No intraluminal mass or stone visualized. Gallbladder: Extensive gallbladder sludge without significant gallbladder wall thickening. Pancreas: Peripancreatic edema noted. Right Kidney: Normal echogenicity and cortical thickness. No mass or hydronephrosis. Other: None. CONCLUSION: 1. Liver appears cirrhotic with mild lobulation. 2. Small right pleural effusion noted. 3. Mild ascites. Extensive gallbladder sludge. Common bile duct not visualized. 4. Probable bidirectional flow in the main portal vein. Electronically signed by: Joseph Sanchez MD 11/04/2018 6:51 PM EST
[2018-11-04] MEDS: Dextrose 5%/NaCl 0.9% Inj 1,000 ML IV.CONT SCH (19:40)
[2018-11-04 20:32] LABS: Uric Acid 6.3 mg/dl (2.6-7.2)
[2018-11-04 21:18] LABS: Hepatitits B Surface Antigen Nonreactive (Nonreactive)
[2018-11-04 21:37] LABS: Hepatitis A IgM Antibody Nonreactive (Nonreactive)
[2018-11-04 23:42] LABS: Activated Partial Thrombo Time 45.4 sec (23.4-31.7); Amylase 72 U/L (25-115); INR 1.9 Ratio; Prothrombin Time 19.7 sec (9.8-11.6)
[2018-11-04] MEDS: Senna/Docusate Sodium 8.6/50 MG Tablet PO SCH (23:46)
[2018-11-05] MEDS: Chlorhexidine Gluconate 2% 1 Pack (2 Cloths) TOPICAL SCH (03:24)
[2018-11-05 03:53] LABS: Baso % (Auto) 0.2 % (0.0-2.0); Hematocrit 24.3 % (39.0-51.0); Hemoglobin 8.5 gm/dL (13.0-17.0); Lymph # (Auto) 0.4 th/mm3 (1.0-4.8); Mean Corpuscular Hemoglobin 34.9 pg (27.0-34.0); Mean Corpuscular Volume 99.8 fL (80.0-100.0); Mean Platelet Volume 7.4 fL (7.0-11.0); Mono # (Auto) 0.4 th/mm3 (0.0-0.9); Mono % (Auto) 8.6 % (0.0-8.0); Neut # (Auto) 4.3 th/mm3 (1.8-7.7); Neut % (Auto) 84.2 % (16.0-70.0); Platelet Count 41 th/mm3 (150-450); Red Blood Count 2.44 mil/mm3 (4.50-5.90); Red Cell Distribution Width 20.3 % (11.6-17.2); White Blood Count 5.1 th/mm3 (4.0-11.0)
[2018-11-05] MEDS ORDERED: Chlorhexidine Gluconate 2% 1 Pack (2 Cloths) TOPICAL PRN (04:00)
[2018-11-05 04:22] LABS: Albumin 1.9 g/dL (3.4-5.0); Calcium 6.8 mg/dL (8.5-10.1); Carbon Dioxide 25.8 meq/L (21.0-32.0); Phosphorus 2.3 mg/dL (2.5-4.9); Total Protein 7.1 g/dL (6.4-8.2)
[2018-11-05] MEDS ORDERED: Magnesium Sulfate Inj 4 GM in Sodium Chlor 0.9% Inj 92 ML IV.SIG PRN (04:29)
[2018-11-05] MEDS ORDERED: Magnesium Sulfate Inj 2 GM in Sodium Chlor 0.9% Inj 96 ML IV.SIG PRN (04:29)
[2018-11-05] MEDS ORDERED: Potassium Chloride 25 MEQ Effervescent Tablet PO PRN (04:29)
[2018-11-05] MEDS ORDERED: Potassium Phosphate 500 MG Soluble Tablet PO PRN ×2 (04:29)
[2018-11-05] MEDS ORDERED: Potassium Chlor 20 mEq Premix 20 MEQ/100 ML PIGGYBACK IV.SIG PRN ×2 (04:29)
[2018-11-05] MEDS ORDERED: Sodium Phosphate Inj 30 MMOL in Sodium Chlor 0.9% Inj 250 ML IV.SIG PRN (04:29)
[2018-11-05] MEDS ORDERED: Potassium Phosphate Inj 30 MMOL in Sodium Chlor 0.9% Inj 250 ML IV.SIG PRN (04:29)
[2018-11-05] MEDS ORDERED: Magnesium Oxide 400 MG Tablet PO PRN (04:29)
[2018-11-05] MEDS ORDERED: Potassium Chlor 40 mEq Premix 40 MEQ/100 ML PIGGYBACK IV.SIG PRN (04:29)
[2018-11-05] MEDS ORDERED: Calcium Chloride Inj 2 GM in Sodium Chlor 0.9% Inj 100 ML IV.SIG ONE (04:31)
[2018-11-05 04:35] LABS: Bilirubin,Urine Negative (Negative); Clarity,Urine Clear (Clear); Color,Urine Amber (Yellw/Straw); Glucose,Urine (UA) Negative (Negative); Leukocyte Esterase,Urine Trace (Negative); Mucus,Urine Few /lpf (Occasional); Nitrite,Urine Negative (Negative); Renal Epithelial Cells,Urine <1 /hpf
[2018-11-05 04:36] LABS: Urobilinogen,Urine 0.2 mg/dL (Less than 2)
[2018-11-05 04:52] LABS: Platelet Morphology Normal (Normal)
[2018-11-05 04:53] LABS: Toxic Granulation 1+
[2018-11-05] MEDS: Potassium Chlor 40 mEq Premix 40 MEQ/100 ML PIGGYBACK IV.SIG PRN ×2 (04:58→13:00)
[2018-11-05] MEDS ORDERED: Sodium Chlor 0.9% Inj 250 ML IV.SIG SCH (05:00)
[2018-11-05] MEDS: Dextrose 5%/NaCl 0.9% Inj 1,000 ML IV.CONT SCH ×3 (05:07→23:33)
--- NOTE | 2018-11-05 07:08 | P.PNCC ---
Subjective Subjective Remarks/Hospital Course: This is a 53-year-old male. Admission 11/04/2018. Past medical history includes EtOH abuse and hypertension. He is unable to give any additional information the present time. His is currently unavailable. Today, the patient was pulled over because he was driving on the wrong side of the road. Paramedics brought him to [facility] emergency department for altered mental status. He reports that he used to be a heavy alcohol drinker but has not consumed alcohol in 3 days. Denies drug use. Denies headache or fever. He does not recognize that he is confused. He says that 4 days ago he fell off a ladder onto his left side. He did not get evaluated. His left side is covered in bruises including his abdomen and back and the left leg. He did not have head injury and has no head or neck pain. CT of the head revealed no acute intracranial findings. CT of the abdomen/ pelvis revealed mesenteric induration perinephric fat. The SMA and SMV are patent. Cannot rule out pancreatic head mass. Patient was transferred to [facility] for further evaluation treatment. On arrival, patient has large ecchymosis involving his left flank, right hip. Patient has an bites on his wrist bilaterally. He is oriented to person and time only. Not place. Moving all 4 extremity spontaneously. Blood sugar 78. Urine toxicology screen pending. SUBJECTIVE: 11/05: Objective Vital Signs / I&O: Vital Signs 11/04/18 12:10 11/04/18 12:50 11/04/18 13:15 Temperature 97.5 F L Pulse Rate 67 72 68 Respiratory Rate 14 12 Blood Pressure 113/59 L 101/55 L Pulse Oximetry 98 98 100 11/04/18 13:16 11/04/18 13:35 11/04/18 14:45 Temperature Pulse Rate 65 68 71 Respiratory Rate 18 14 14 Blood Pressure 101/55 L 101/61 93/50 L Pulse Oximetry 100 98 100 11/04/18 15:00 11/04/18 15:15 11/04/18 15:30 Temperature Pulse Rate 62 69 68 Respiratory Rate 14 12 12 Blood Pressure 95/51 L 109/50 L 98/48 L Pulse Oximetry 97 98 100 11/04/18 16:45 11/04/18 20:00 11/04/18 20:02 Temperature 97.9 F Pulse Rate 68 64 63 Respiratory Rate 14 10 L Blood Pressure 90/51 L 95/52 L Pulse Oximetry 98 100 97 11/04/18 21:34 11/04/18 21:39 11/04/18 22:00 Temperature 97.5 F L 97.5 F L Pulse Rate 65 66 63 Respiratory Rate 11 L 20 16 Blood Pressure 90/49 L 93/50 L Pulse Oximetry 99 99 99 11/04/18 22:30 11/04/18 23:00 11/04/18 23:30 Temperature Pulse Rate 63 62 64 Respiratory Rate 13 10 L 13 Blood Pressure 98/57 L 107/57 L 98/53 L Pulse Oximetry 100 100 99 11/04/18 23:58 11/05/18 00:00 11/05/18 00:01 Temperature 97.9 F 97.6 F Pulse Rate 61 64 62 Respiratory Rate 13 17 14 Blood Pressure 98/53 L 98/53 L Pulse Oximetry 98 100 100 11/05/18 00:30 11/05/18 01:00 11/05/18 01:31 Temperature Pulse Rate 63 63 63 Respiratory Rate 21 25 H 24 Blood Pressure 98/55 L 106/53 L 101/53 L Pulse Oximetry 100 100 100 11/05/18 02:00 11/05/18 02:30 11/05/18 03:00 Temperature Pulse Rate 63 63 61 Respiratory Rate 18 17 24 Blood Pressure 97/50 L 104/55 L 118/60 Pulse Oximetry 100 100 100 11/05/18 03:31 11/05/18 03:42 11/05/18 04:00 Temperature Pulse Rate 61 75 60 Respiratory Rate 18 18 17 Blood Pressure 94/53 L 103/65 Pulse Oximetry 100 100 11/05/18 04:45 11/05/18 05:00 11/05/18 05:30 Temperature 97.6 F Pulse Rate 64 62 68 Respiratory Rate 18 28 H 17 Blood Pressure 102/58 L 108/67 109/72 Pulse Oximetry 93 L 100 96 11/05/18 06:00 11/05/18 06:31 Temperature 98.1 F Pulse Rate 69 88 Respiratory Rate 18 28 H Blood Pressure 120/58 L 127/56 L Pulse Oximetry 99 100 Intake & Output 11/04/18 11/05/18 11/05/18 18:59 06:59 18:59 Intake Total 2383 / 2383 Balance 2383 / 2383 Weight 69.1 kg Intake: IV 1251 / 1251 D5W/Normal Saline Inj 1,000 ML 1000 / 1000 @ 100 mls/hr IV.CONT .Q10H [facility] Rx#:[id number] Magnesium Sulfate Inj 2 GM In 100 / 100 NS Inj 96 ML @ 50 mls/hr IV.SIG ONCE ONE Rx#:[id number] Vitamin K Inj 10 MG In NS Inj 51 / 51 50 ML @ 102 mls/hr IV.SIG ONCE ONE Rx#:[id number] KCl 20 mEq Premix Inj 20 meq In 100 / 100 100 ml @ 0 mls/hr IV.SIG .STK- MED ONE Rx#:[id number] Intake (Blood Product) Amt 1132 / 1132 Plasma Thawed 5 Day Cp2d Unit 332 / 332 [id number] Plt Pheresis B Leukoreduced 0 / 0 Unit [id number] Pre-Pooled Cryo Thawed 10units 0 / 0 Unit [id number] Rbc As-3 Leukoreduced Unit 400 / 400 [id number] Rbc As-3 Leukoreduced Unit 400 / 400 [id number] Result Diagrams: 11/05/18 03:45 11/05/18 03:45 Imaging: Liver Ultrasound 11/04/18 00:00 CONCLUSION: 1. Liver appears cirrhotic with mild lobulation. 2. Small right pleural effusion noted. 3. Mild ascites. Extensive gallbladder sludge. Common bile duct not visualized. 4. Probable bidirectional flow in the main portal vein. Abdomen/Pelvis CT 11/04/18 12:43 CONCLUSION: 1. I don't see an intrahepatic biliary duct dilatation. Induration in the mesentery and around the pancreas worse in the head of the pancreas. 2. Pancreatitis would be consideration 3. The edema extends throughout the mesentery suggesting portal hypertension and hepatic failure. Correlation suggested. 4. Focal mass in the pancreas cannot be entirely excluded because of edema. Chest X-Ray 11/04/18 12:43 CONCLUSION: 1. No acute cardiopulmonary disease. Head CT 11/04/18 12:43 CONCLUSION: 1. Negative for acute process . Tibia/Fibula X-Ray 11/04/18 12:48 CONCLUSION: 1. No acute fracture or radiopaque foreign bodies. Objective Remarks: GENERAL: 53-year-old male currently resting in bed SKIN: Warm and dry. Jaundice. Large right hip, left flank ecchymosis noted from prior fall. HEAD: Atraumatic. Normocephalic. EYES: Pupils equal and round about 3 mm bilaterally. + scleral icterus. No injection or drainage. ENT: No nasal bleeding or discharge. Mucous membranes pink and moist. NECK: Trachea midline. No JVD. CARDIOVASCULAR: Regular rate and rhythm. S1, S2. No S4. RESPIRATORY: No accessory muscle use. Clear to auscultation. Breath sounds equal bilaterally. GASTROINTESTINAL: Abdomen distended, nontender. Ascites appreciated. Slight hepatic enlargement appreciated MUSCULOSKELETAL: Extremities without significant peripheral edema. No obvious deformities. Patient has a right femoral central line currently in about 14 cm NEUROLOGICAL: Awake and alert person and time. No obvious cranial nerve deficits. Motor grossly within normal limits. Five out of 5 muscle strength in the arms and legs. Normal speech. Assessment and Plan - Problem List (1) Hypopotassemia Code(s): E87.6 - Hypokalemia Status: Acute (2) Total bilirubin, elevated Code(s): R17 - Unspecified jaundice Status: Acute (3) Thrombocytopenia Code(s): D69.6 - Thrombocytopenia, unspecified Status: Acute (4) Macrocytic anemia Code(s): D53.9 - Nutritional anemia, unspecified Status: Acute (5) Hyperammonemia Code(s): E72.20 - Disorder of urea cycle metabolism, unspecified Status: Acute (6) Hypoalbuminemia Code(s): E88.09 - Other disorders of plasma-protein metabolism, not elsewhere classified Status: Acute (7) ETOH abuse Code(s): F10.10 - Alcohol abuse, uncomplicated Status: Acute (8) Altered mental status Code(s): R41.82 - Altered mental status, unspecified Status: Acute (9) Hyponatremia Code(s): E87.1 - Hypo-osmolality and hyponatremia Status: Acute (10) Alcoholic cirrhosis of liver with ascites Code(s): K70.31 - Alcoholic cirrhosis of liver with ascites Status: Acute (11) Elevated AST (SGOT) Code(s): R74.0 - Nonspecific elevation of levels of transaminase and lactic acid dehydrogenase [LDH] Status: Acute - Assessment and Plan Plan: Neuro/Psych: Acute encephalopathy likely secondary to elevated ammonia EtOH abuse CT brain revealed no acute intracranial abnormalities CIWA protocol initiated Vitamin bag daily times 3 days. Then transition to thiamine 100 mg daily No acetaminophen with elevated LFTs Monitor for DTs CV: Received normal saline 1 L at [place]. As needed norepinephrine with current central lines in place Follow-up on lactate was 1.9, Currently D5 normal saline at 100 cc an hour Holding propranolol 40 mg twice daily/home medication. Will need nitrates will likely Resp: Nasal cannula to maintain saturations greater than equal 92% Incentive spirometry while awake Albuterol/ipratropium aerosols every 4 hours with albuterol aerosols every 2 hours as needed dyspnea X-ray chest on admission revealed no acute acute cardia pulmonate findings GI: Elevated total bilirubin Elevated AST Elevated ammonia Hypoalbuminemia Mesenteric induration on CT abdomen/pelvis N.p.o. status except for medications Pantoprazole for GI prophylaxis Docusate serum/senna 1 tablet twice daily for bowel regimen Lactulose 30 cc twice daily/recheck ammonia level in a.m was 35. Recheck. CT abdomen/pelvis revealed mesenteric induration along with peritoneal fat ulcer of the pancreas. No intra-hepatic biliary ductal dilatation. SMA/SMV are patent. Mesenteric edema significant of liver disease/portal hypertension Currently has no abdominal pain. GI consultation ordered for assistance in management Hepatitis panel negative : Straight catheterization as needed Endo: Sliding scale insulin Accu-Cheks to maintain euglycemia/every 6 hours aspart insulin TSH was 2.39 Renal: Acute kidney injury unknown baseline Monitor urine output Accurate I's and O's CT abdomen/pelvis revealed no signs of hydronephrosis Check urine eosinophils, sodium and creatinine Heme: Macrocytic anemia Thrombocytopenia Coagulopathy including INR 1.9, PTT of 45 and fibrinogen of 81 Transfuse 2 units PRBCs 1 FFP and 1 cryoprecipitate since admission. 10 mg vitamin K IV x1 given today. Recheck coags in a.m. with fibrinogen Check CBC in a.m. /12 Hemoccult ordered ID: No signs of active bleeding. Monitor for signs of and symptomatology of infection FEN: Hypopotassemia Hyperosmolar hyponatremia Hypophosphatemia 80 mEq potassium chloride IV x1 now., 30 mmol potassium phosphate Discontinue hypertonic saline Replace electrolytes as clinically indicated per ICU electrolyte protocol Currently D5 normal saline at 100 cc an hour Uric acid was 6.3. Cortisol 2.1. TSH 2.39 Urine osmolality pending. Serum osmolality is 268. Sodium MSK: Large right flank ecchymosis PT evaluate and treat gait assessment Left tib/fib shows no signs of fracture Access: -Utilize peripheral AP will discontinue right femoral central line Prophylaxis -GI -pantoprazole -DVT -SCD/holding pharmacologic prophylaxis in light of elevated INR/PTT Level 3 follow-up Code Status: Full code (8) Altered mental status Qualifiers: Altered mental status type: delirium Qualified Code(s): R41.0 - Disorientation, unspecified
[2018-11-05 08:53] LABS: Amphetamine Screen,Urine Neg (Neg); Barbiturate Screen,Urine Neg (Neg); Cannabinoid Screen,Urine Neg (Neg); Cocaine Screen,Urine Neg (Neg)
[2018-11-05 08:54] LABS: Creatinine,Urine Random 54 mg/dL (27-300); Opiate Screen,Urine Neg (Neg); Sodium,Urine Random 8 meq/L
--- NOTE | 2018-11-05 09:38 | ECG ---
Date Performed: 11/04/2018 Time Performed: 12:56:09 PTAGE: 53 years EKG: Sinus rhythm PROLONGED QT INTERVAL ABNORMAL ECG NO PREVIOUS TRACING DOCTOR: Vel Lynch Interpretating Date/Time 11/05/2018 09:37:40
[2018-11-05] MEDS: Pantoprazole Inj 40 MG Vial IV.PUSH SCH (09:45)
[2018-11-05 11:04] LABS: Hematocrit 22.6 % (39.0-51.0); Hemoglobin 8.1 gm/dL (13.0-17.0)
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
[2018-11-05] MEDS: Senna/Docusate Sodium 8.6/50 MG Tablet PO SCH ×2 (13:54→21:19)
[2018-11-05] MEDS: Multivitamin Inj 10 ML, Thiamine Inj 100 MG, Folic Acid Inj 1 MG in Sodium Chlor 0.9% I... IV.SIG SCH (16:58)
[2018-11-05] MEDS ORDERED: Phytonadione Inj 10 MG in Sodium Chlor 0.9% Inj 50 ML IV.SIG ONE (18:00)
[2018-11-05] MEDS: Dexmedetomidine Inj 200 MCG in Sodium Chlor 0.9% Inj 48 ML IV.CONT PRN (18:30)
[2018-11-05] MEDS: rifAXIMin 550 MG Tablet PO SCH (21:19)
[2018-11-06] MEDS: Dexmedetomidine Inj 200 MCG in Sodium Chlor 0.9% Inj 48 ML IV.CONT PRN ×4 (00:42→22:24)
[2018-11-06] MEDS: Chlorhexidine Gluconate 2% 1 Pack (2 Cloths) TOPICAL SCH (04:14)
[2018-11-06] MEDS: Pantoprazole Inj 40 MG Vial IV.PUSH SCH (08:15)
[2018-11-06] MEDS: rifAXIMin 550 MG Tablet PO SCH ×2 (08:16→20:07)
[2018-11-06] MEDS: Senna/Docusate Sodium 8.6/50 MG Tablet PO SCH ×2 (08:16→20:07)
[2018-11-06 08:18] LABS: Baso % (Auto) 0.5 % (0.0-2.0); Eos % (Auto) 0.1 % (0.0-4.0); Hematocrit 22.5 % (39.0-51.0); Lymph # (Auto) 0.6 th/mm3 (1.0-4.8); Lymph % (Auto) 17.1 % (9.0-44.0); Mean Corpuscular HGB Conc 35.7 % (32.0-36.0); Mean Corpuscular Hemoglobin 36.2 pg (27.0-34.0); Mean Corpuscular Volume 101.4 fL (80.0-100.0); Mean Platelet Volume 7.7 fL (7.0-11.0); Mono # (Auto) 0.5 th/mm3 (0.0-0.9); Mono % (Auto) 15.1 % (0.0-8.0); Neut # (Auto) 2.2 th/mm3 (1.8-7.7); Neut % (Auto) 67.2 % (16.0-70.0); Platelet Count 45 th/mm3 (150-450); Red Blood Count 2.22 mil/mm3 (4.50-5.90); Red Cell Distribution Width 21.6 % (11.6-17.2); White Blood Count 3.2 th/mm3 (4.0-11.0)
[2018-11-06 08:21] LABS: Activated Partial Thrombo Time 39.9 sec (23.4-31.7); Prothrombin Time 20.6 sec (9.8-11.6)
[2018-11-06] MEDS: Multivitamin Inj 10 ML, Thiamine Inj 100 MG, Folic Acid Inj 1 MG in Sodium Chlor 0.9% I... IV.SIG SCH (08:25)
[2018-11-06 08:43] LABS: Alanine Aminotransferase 55 U/L (12-78); Alkaline Phosphatase 83 U/L (45-117); Anion Gap 8 meq/L (5-15); Aspartate Aminotransferase 107 U/L (15-37); Blood Urea Nitrogen 12 mg/dL (7-18); Calcium 7.8 mg/dL (8.5-10.1); Carbon Dioxide 23.9 meq/L (21.0-32.0); Chloride 104 meq/L (98-107); Chol/HDL Ratio 2.96 Ratio; Cholesterol 64 mg/dL (120-200); Glomerular Filtration Rate 85 mL/min (>89); Glucose,Random 126 mg/dL (74-106); HDL Cholesterol 21.6 mg/dL (40.0-60.0); LDL Cholesterol,Calculated 30 mg/dL (0-99); Magnesium 1.6 mg/dL (1.5-2.5); Phosphorus 2.5 mg/dL (2.5-4.9); Potassium 3.9 meq/L (3.5-5.1); Sodium 136 meq/L (136-145); Triglycerides 62 mg/dL (42-150)
[2018-11-06 08:53] LABS: Acanthocytes Occ; Burr Cells 1+; Platelet Morphology Normal (Normal); Toxic Granulation 1+
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
[2018-11-06] MEDS: Dextrose 5%/NaCl 0.9% Inj 1,000 ML IV.CONT SCH ×2 (11:25→21:09)
[2018-11-06 12:09] LABS: Prothrombin Time 20.7 sec (9.8-11.6)
[2018-11-06 12:42] LABS: Alanine Aminotransferase 53 U/L (12-78); Albumin 1.8 g/dL (3.4-5.0); Alkaline Phosphatase 79 U/L (45-117); Anion Gap 8 meq/L (5-15); Aspartate Aminotransferase 109 U/L (15-37); Blood Urea Nitrogen 11 mg/dL (7-18); Calcium 7.4 mg/dL (8.5-10.1); Carbon Dioxide 23.6 meq/L (21.0-32.0); Chloride 105 meq/L (98-107); Glomerular Filtration Rate Greater Than 89 mL/min (>89); Glucose,Random 115 mg/dL (74-106); Magnesium 1.5 mg/dL (1.5-2.5); Phosphorus 2.5 mg/dL (2.5-4.9); Potassium 3.9 meq/L (3.5-5.1); Sodium 137 meq/L (136-145); Total Protein 6.5 g/dL (6.4-8.2); Triglycerides 57 mg/dL (42-150)
[2018-11-06 13:04] LABS: Baso % (Auto) 0.9 % (0.0-2.0); Eos % (Auto) 0.1 % (0.0-4.0); Hematocrit 22.6 % (39.0-51.0); Lymph # (Auto) 0.6 th/mm3 (1.0-4.8); Lymph % (Auto) 16.7 % (9.0-44.0); Mean Corpuscular HGB Conc 35.6 % (32.0-36.0); Mean Corpuscular Hemoglobin 36.4 pg (27.0-34.0); Mean Corpuscular Volume 102.4 fL (80.0-100.0); Mean Platelet Volume 8.3 fL (7.0-11.0); Mono # (Auto) 0.5 th/mm3 (0.0-0.9); Mono % (Auto) 13.4 % (0.0-8.0); Neut # (Auto) 2.5 th/mm3 (1.8-7.7); Neut % (Auto) 68.9 % (16.0-70.0); Platelet Count 55 th/mm3 (150-450); Red Blood Count 2.21 mil/mm3 (4.50-5.90); Red Cell Distribution Width 23.7 % (11.6-17.2); White Blood Count 3.7 th/mm3 (4.0-11.0)
[2018-11-06 13:11] LABS: Burr Cells 1+
[2018-11-06 13:12] LABS: Platelet Morphology Normal (Normal); Toxic Granulation 1+
--- NOTE | 2018-11-06 15:39 | P.DIET ---
Nutritional Evaluation Type of nutrition evaluation: initial Nutrition consult regarding: TPN/PPN Nutrition screening: MDC (TPN/PPN) Screening comments: 11/06 MDC for TPN/PPN Objective - Diagnosis hyponatremia, heptic encephalopathy - Objective Body Mass Index: 25.4 % IBW: 118 (IBW = 136lb) Body Weight Used for Calculations: Actual (69.1kg) Energy Needs - Lower Range (kCal/kg): 28 Energy Needs - Upper Range (kCal/kg): 32 Lower Limit kCal/kg (kCals): 1,935 Upper Limit kCal/kg (kCals): 2,211 Lower Limit Protein Factor (Grams per Kg): 1.2 Upper Limit Protein Factor (Grams per Kg): 1.4 Lower Protein Needs (Protein): 83 Upper Protein Needs (Protein): 97 Dietitian Reviewed in Medical Record: Curent medications, Intake & Output, Labs , Medical history, TPN/PPN Diet Order: NPO Objective Comments: Meds MVI, folic acid, thiamine Labs: Ca+ 7.4, POC 134 122 Assessment Assessment: MDC for TPN/PPN received on 11/06. Pt currently recieving Clinimix E 4.25/5 PPN @ 83mL/hr w/ Intralipid 20% 250mL @ 10mL/hr to provide 1180kcal and 85g of protein. PPN meets pts protein needs, but does not meet pts assessed energy needs. Per MD note, pt is planned for MRCP today. Continue to monitor glucose levels. Labs reviewed. Dietitian following and available for additional recs to follow r/t medical course. Recommendations: 1. Clinimix E 4.25/5 PPN @ 83mL/hr w/ Intralipid 20% 250mL @ 10mL/hr per MD 2. Continue to monitor glucose levels 3. Dietitian following and available for additional recs to follow r/t medical course Dietitian to Monitor: Lab values, Glucose level, Intake & Output, TPN/PPN tolerance, Medical course
[2018-11-06 18:07] LABS: Anti-Nuclear Antibody Screen Pos (Neg)
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
[2018-11-06] MEDS: Multivitamin Inj 10 ML, Folic Acid Inj 1 MG in AA 4.25 %/D5W - Electrolytes 2,000 ML IV.SIG SCH (19:56)
[2018-11-07] MEDS: Chlorhexidine Gluconate 2% 1 Pack (2 Cloths) TOPICAL SCH (03:06)
[2018-11-07] MEDS: Dexmedetomidine Inj 200 MCG in Sodium Chlor 0.9% Inj 48 ML IV.CONT PRN ×5 (03:41→20:19)
[2018-11-07] MEDS: Dextrose 5%/NaCl 0.9% Inj 1,000 ML IV.CONT SCH ×2 (06:20→16:24)
[2018-11-07 07:06] LABS: Activated Partial Thrombo Time 47.6 sec (23.4-31.7); INR 2.2 Ratio; Prothrombin Time 22.3 sec (9.8-11.6)
[2018-11-07 07:30] LABS: Baso % (Auto) 0.3 % (0.0-2.0); Lymph # (Auto) 0.4 th/mm3 (1.0-4.8); Lymph % (Auto) 19.8 % (9.0-44.0); Mean Corpuscular Hemoglobin 36.1 pg (27.0-34.0); Mean Corpuscular Volume 99.8 fL (80.0-100.0); Mean Platelet Volume 7.3 fL (7.0-11.0); Mono # (Auto) 0.2 th/mm3 (0.0-0.9); Mono % (Auto) 9.7 % (0.0-8.0); Neut # (Auto) 1.6 th/mm3 (1.8-7.7); Neut % (Auto) 70.2 % (16.0-70.0); Platelet Count 35 th/mm3 (150-450); Red Cell Distribution Width 21.5 % (11.6-17.2); White Blood Count 2.2 th/mm3 (4.0-11.0)
[2018-11-07 07:36] LABS: Albumin 1.7 g/dL (3.4-5.0); Anion Gap 8 meq/L (5-15); Aspartate Aminotransferase 102 U/L (15-37); Blood Urea Nitrogen 13 mg/dL (7-18); Calcium 7.5 mg/dL (8.5-10.1); Carbon Dioxide 23.4 meq/L (21.0-32.0); Chloride 106 meq/L (98-107); Glomerular Filtration Rate Greater Than 89 mL/min (>89); Glucose,Random 144 mg/dL (74-106); Lipase 135 U/L (73-393); Magnesium 1.5 mg/dL (1.5-2.5); Potassium 4.1 meq/L (3.5-5.1); Sodium 137 meq/L (136-145)
[2018-11-07 07:38] LABS: Alanine Aminotransferase 52 U/L (12-78); Phosphorus 3.3 mg/dL (2.5-4.9)
[2018-11-07 07:42] LABS: Alkaline Phosphatase 76 U/L (45-117); Total Protein 6.4 g/dL (6.4-8.2)
[2018-11-07] MEDS: Pantoprazole Inj 40 MG Vial IV.PUSH SCH (08:04)
[2018-11-07] MEDS: Senna/Docusate Sodium 8.6/50 MG Tablet PO SCH ×2 (08:05→20:20)
[2018-11-07 08:28] LABS: Mean Corpuscular HGB Conc 36.2 % (32.0-36.0)
[2018-11-07 08:31] LABS: Acanthocytes Occ; Burr Cells 1+
[2018-11-07 08:33] LABS: Platelet Morphology Normal (Normal)
[2018-11-07] MEDS ORDERED: Phytonadione Inj 10 MG in Sodium Chlor 0.9% Inj 50 ML IV.SIG ONE (09:00)
[2018-11-07] MEDS: Thiamine Inj 100 MG in Sodium Chlor 0.9% Inj 100 ML IV.SIG SCH (10:49)
[2018-11-07] MEDS: rifAXIMin 550 MG Tablet PO SCH ×3 (10:49→20:20)
--- NOTE | 2018-11-07 12:49 | P.PNCC ---
Subjective Subjective Remarks/Hospital Course: This is a 53-year-old male. Admission 11/04/2018. Past medical history includes EtOH abuse and hypertension. He is unable to give any additional information the present time. His is currently unavailable. Today, the patient was pulled over because he was driving on the wrong side of the road. Paramedics brought him to [facility] emergency department for altered mental status. He reports that he used to be a heavy alcohol drinker but has not consumed alcohol in 3 days. Denies drug use. Denies headache or fever. He does not recognize that he is confused. He says that 4 days ago he fell off a ladder onto his left side. He did not get evaluated. His left side is covered in bruises including his abdomen and back and the left leg. He did not have head injury and has no head or neck pain. CT of the head revealed no acute intracranial findings. CT of the abdomen/ pelvis revealed mesenteric induration perinephric fat. The SMA and SMV are patent. Cannot rule out pancreatic head mass. Patient was transferred to [facility] for further evaluation treatment. On arrival, patient has large ecchymosis involving his left flank, right hip. Patient has an bites on his wrist bilaterally. He is oriented to person and time only. Not place. Moving all 4 extremity spontaneously. Blood sugar 78. Urine toxicology screen pending. 11/05: Receiving Ativan for agitation. Received cryoprecipitate overnight due to low fibrinogen. We will start on Precedex drip due to agitation. Confabulating. 11/06: Remains quite confused. Remains in soft restraints. Actively going through alcohol withdrawals. Plan for MRCP today. On dexmedetomidine drip at 0.3 mcg/kg/h SUBJECTIVE: 11/07: Again remains confused. Does answer yes/no questions. Remains soft restraints. Unable to do MRCP secondary to unable to hold breath. Remains on dexmedetomidine drip. Objective Vital Signs / I&O: Vital Signs 11/06/18 13:00 11/06/18 13:30 11/06/18 14:00 Temperature Pulse Rate 66 124 H 66 Respiratory Rate 33 H 31 H 21 Blood Pressure 97/56 L 109/69 93/50 L Pulse Oximetry 99 100 97 11/06/18 14:30 11/06/18 15:00 11/06/18 15:30 Temperature Pulse Rate 74 65 63 Respiratory Rate 25 H 20 21 Blood Pressure 94/64 L 99/53 L 94/53 L Pulse Oximetry 100 99 97 11/06/18 15:44 11/06/18 16:00 11/06/18 16:01 Temperature 97.4 F L Pulse Rate 63 74 73 Respiratory Rate 18 23 22 Blood Pressure 94/53 L 121/56 L Pulse Oximetry 100 100 11/06/18 16:30 11/06/18 17:00 11/06/18 17:30 Temperature Pulse Rate 63 133 H 65 Respiratory Rate 19 21 18 Blood Pressure 90/51 L 97/68 L 93/52 L Pulse Oximetry 99 97 98 11/06/18 18:00 11/06/18 18:30 11/06/18 19:00 Temperature Pulse Rate 119 H 72 71 Respiratory Rate 20 23 18 Blood Pressure 101/58 L 93/55 L 88/54 L Pulse Oximetry 100 100 100 11/06/18 19:30 11/06/18 20:00 11/06/18 20:07 Temperature 98 F Pulse Rate 69 62 62 Respiratory Rate 22 16 18 Blood Pressure 97/53 L 90/50 L Pulse Oximetry 100 99 99 11/06/18 20:09 11/06/18 20:30 11/06/18 21:00 Temperature Pulse Rate 61 60 Respiratory Rate 17 16 Blood Pressure 96/58 L 99/59 L Pulse Oximetry 99 100 100 11/06/18 21:30 11/06/18 22:00 11/06/18 22:30 Temperature Pulse Rate 59 L 60 60 Respiratory Rate 16 16 27 H Blood Pressure 100/60 110/62 99/58 L Pulse Oximetry 99 98 98 11/06/18 23:00 11/06/18 23:30 11/06/18 23:50 Temperature Pulse Rate 96 H 57 L 61 Respiratory Rate 23 17 18 Blood Pressure 108/59 L 104/64 Pulse Oximetry 99 97 98 11/07/18 00:00 11/07/18 01:00 11/07/18 02:00 Temperature 97.7 F Pulse Rate 56 L 54 L 56 L Respiratory Rate 17 16 14 Blood Pressure 105/68 105/68 98/57 L Pulse Oximetry 99 100 99 11/07/18 02:58 11/07/18 03:00 11/07/18 03:30 Temperature Pulse Rate 52 L 52 L 51 L Respiratory Rate 16 14 15 Blood Pressure 98/57 L 97/56 L 96/55 L Pulse Oximetry 100 100 100 11/07/18 03:48 11/07/18 04:00 11/07/18 04:30 Temperature 98.1 F Pulse Rate 52 L 50 L 50 L Respiratory Rate 18 15 14 Blood Pressure 103/58 L 98/54 L Pulse Oximetry 100 100 11/07/18 05:00 11/07/18 05:30 11/07/18 06:00 Temperature Pulse Rate 51 L 52 L 52 L Respiratory Rate 16 14 14 Blood Pressure 103/59 L 94/57 L 83/55 L Pulse Oximetry 100 100 100 11/07/18 06:31 11/07/18 07:00 11/07/18 07:30 Temperature Pulse Rate 106 H 61 170 H Respiratory Rate 20 16 22 Blood Pressure 106/61 104/63 105/55 L Pulse Oximetry 100 100 100 11/07/18 08:00 11/07/18 08:17 11/07/18 08:30 Temperature 97.1 F L Pulse Rate 144 H 68 92 H Respiratory Rate 21 18 19 Blood Pressure 111/57 L 92/53 L Pulse Oximetry 100 98 100 11/07/18 09:00 11/07/18 09:30 11/07/18 10:00 Temperature Pulse Rate 161 H 75 130 H Respiratory Rate 25 H 23 19 Blood Pressure 99/59 L 108/57 L Pulse Oximetry 100 100 100 11/07/18 10:01 11/07/18 10:48 11/07/18 11:15 Temperature 97 F L Pulse Rate 121 H 74 72 Respiratory Rate 34 H 18 14 Blood Pressure 114/56 L 94/56 L Pulse Oximetry 100 100 11/07/18 12:03 Temperature 97 F L Pulse Rate 76 Respiratory Rate 18 Blood Pressure 99/56 L Pulse Oximetry 100 Intake & Output 11/06/18 11/07/18 11/07/18 18:59 06:59 18:59 Intake Total 1100 / 1100 100 / 100 1994.2 Output Total 500 / 500 625 / 625 Balance 600 / 600 -525 / -525 1994.2 Intake: IV 1100 / 1100 100 / 100 1763.2 / 1763.2 Precedex Inj 200 MCG In NS Inj 100 / 100 100 / 100 100 / 100 48 ML @ 0.2 MCG/KG/HR 3.45 mls/ hr IV.CONT TITRATE PRN Rx#: [id number] D5W/Normal Saline Inj 1,000 ML 1000 / 1000 1000 / 1000 @ 100 mls/hr IV.CONT .Q10H BAUDILIO Rx#:[id number] Vitamin K Inj 10 MG In NS Inj 51 / 51 50 ML @ 102 mls/hr IV.SIG ONCE ONE Rx#:[id number] Thiamine Inj 100 MG In NS Inj 101 / 101 100 ML @ 100 mls/hr IV.SIG DAILY BAUDILIO Rx#:[id number] Oral 0 / 0 Intake (Blood Product) Amt 232 / 232 Plasma Thawed 5 Day Acda Unit 0 / 0 [id number] Pre-Pooled Cryo Thawed 10units 232 / 232 Unit [id number] Output: Urine Amount (Catheter) 500 / 500 625 / 625 Straight 500 / 500 625 / 625 Other: # Bowel Movements 0 Result Diagrams: 11/07/18 06:25 11/07/18 06:25 Other Results: Microbiology 11/06/18 11:41 Blood - Peripheral Aerobic Blood Culture - Preliminary No growth in 1 day 11/06/18 11:41 Blood - Peripheral Anaerobic Blood Culture - Preliminary No growth in 1 day 11/06/18 11:29 Blood - Peripheral Aerobic Blood Culture - Preliminary No growth in 1 day 11/06/18 11:29 Blood - Peripheral Anaerobic Blood Culture - Preliminary No growth in 1 day 11/05/18 04:03 Clean Catch Urine Urine Culture - Final No growth in 48 hours Imaging: Liver Ultrasound 11/04/18 00:00 CONCLUSION: 1. Liver appears cirrhotic with mild lobulation. 2. Small right pleural effusion noted. 3. Mild ascites. Extensive gallbladder sludge. Common bile duct not visualized. 4. Probable bidirectional flow in the main portal vein. Abdomen/Pelvis CT 11/04/18 12:43 CONCLUSION: 1. I don't see an intrahepatic biliary duct dilatation. Induration in the mesentery and around the pancreas worse in the head of the pancreas. 2. Pancreatitis would be consideration 3. The edema extends throughout the mesentery suggesting portal hypertension and hepatic failure. Correlation suggested. 4. Focal mass in the pancreas cannot be entirely excluded because of edema. Chest X-Ray 11/04/18 12:43 CONCLUSION: 1. No acute cardiopulmonary disease. Head CT 11/04/18 12:43 CONCLUSION: 1. Negative for acute process . Tibia/Fibula X-Ray 11/04/18 12:48 CONCLUSION: 1. No acute fracture or radiopaque foreign bodies. Objective Remarks: GENERAL: 53-year-old male currently resting in bed in soft restraints SKIN: Warm and dry. Jaundice. Large right hip, left flank ecchymosis noted from prior fall. HEAD: Atraumatic. Normocephalic. EYES: Pupils equal and round about 3 mm bilaterally. + scleral icterus. No injection or drainage. ENT: No nasal bleeding or discharge. Mucous membranes pink and moist. NECK: Trachea midline. No JVD. CARDIOVASCULAR: Tachycardic, normal rhythm. S1, S2. No S4. RESPIRATORY: No accessory muscle use. Clear to auscultation. Breath sounds equal bilaterally. GASTROINTESTINAL: Abdomen distended, nontender. Ascites appreciated. Slight hepatic enlargement appreciated MUSCULOSKELETAL: Extremities without significant peripheral edema. No obvious deformities. See skin for Derm issues NEUROLOGICAL: Awake and not oriented. No obvious cranial nerve deficits. Motor grossly within normal limits. Five out of 5 muscle strength in the arms and legs. Answers yes/no questions Assessment and Plan - Problem List (1) Hypopotassemia Code(s): E87.6 - Hypokalemia Status: Acute (2) Total bilirubin, elevated Code(s): R17 - Unspecified jaundice Status: Acute (3) Thrombocytopenia Code(s): D69.6 - Thrombocytopenia, unspecified Status: Acute (4) Macrocytic anemia Code(s): D53.9 - Nutritional anemia, unspecified Status: Acute (5) Hyperammonemia Code(s): E72.20 - Disorder of urea cycle metabolism, unspecified Status: Acute (6) Hypoalbuminemia Code(s): E88.09 - Other disorders of plasma-protein metabolism, not elsewhere classified Status: Acute (7) ETOH abuse Code(s): F10.10 - Alcohol abuse, uncomplicated Status: Acute (8) Altered mental status Code(s): R41.82 - Altered mental status, unspecified Status: Acute (9) Hyponatremia Code(s): E87.1 - Hypo-osmolality and hyponatremia Status: Acute (10) Alcoholic cirrhosis of liver with ascites Code(s): K70.31 - Alcoholic cirrhosis of liver with ascites Status: Acute (11) Elevated AST (SGOT) Code(s): R74.0 - Nonspecific elevation of levels of transaminase and lactic acid dehydrogenase [LDH] Status: Acute - Assessment and Plan Plan: Neuro/Psych: Acute encephalopathy likely secondary to elevated ammonia EtOH abuse CT brain revealed no acute intracranial abnormalities CIWA protocol initiated. Receiving lorazepam and dexamethasone drip Vitamin bag daily times 3 days. Then transition to thiamine 100 mg daily on No acetaminophen with elevated LFTs Monitor for DTs in ICU CV: Lactic acidosis Twice daily normal saline 1 L at [place]. As needed norepinephrine with current central lines in place Follow-up on lactate was 1.9, bili 3.0 Currently D5 normal saline at 100 cc an hour Holding propranolol 40 mg twice daily/home medication. Will need nitrates will likely when blood pressure tolerates Resp: Nasal cannula to maintain saturations greater than equal 92% Incentive spirometry while awake Albuterol/ipratropium aerosols every 4 hours with albuterol aerosols every 2 hours as needed dyspnea X-ray chest on admission revealed no acute acute cardia pulmonate findings GI: Elevated total bilirubin Elevated AST Elevated ammonia Hypoalbuminemia Mesenteric induration on CT abdomen/pelvis N.p.o. status except for medications Pantoprazole for GI prophylaxis Docusate serum/senna 1 tablet twice daily for bowel regimen Xifaxan 550 mg twice daily. Lactulose 30 cc twice daily last ammonia level is 55 CT abdomen/pelvis revealed mesenteric induration along with peritoneal fat ulcer of the pancreas. No intra-hepatic biliary ductal dilatation. SMA/SMV are patent. Mesenteric edema significant of liver disease/portal hypertension Currently has no abdominal pain. GI consultation ordered for assistance in management plan MRCP today. Hepatitis panel negative. Multiple laboratories pending JOVON is positive. Check positive JOVON screening labs NG tube will be placed for lactulose and Xifaxan : Straight catheterization as needed Endo: Sliding scale insulin Accu-Cheks to maintain euglycemia/every 6 hours aspart insulin TSH was 2.39 Renal: Acute kidney injury unknown baseline resolved Monitor urine output Accurate I's and O's CT abdomen/pelvis revealed no signs of hydronephrosis Negative urine eosinophils, Heme: Macrocytic anemia Thrombocytopenia Coagulopathy Leukopenia Transfuse 2 units PRBCs 1 FFP and 1 cryoprecipitate since admission. 10 mg vitamin K IV x1 given today. Recheck coags in a.m. with fibrinogen Check CBC in a.m. 11/08 Hemoccult ordered Given 1 FFP 1 1 cryo and 10 mg vitamin K today ID: No signs of active bleeding. Monitor for signs of and symptomatology of infection FEN: Hypomagnesia Replace electrolytes as clinically indicated per ICU electrolyte protocol 4 g mag sulfate x1 Clinimix 4.25 at 83 cc an hour with lipids stable 4 g mag sulfate IV times Uric acid was 6.3. Cortisol 2.1. TSH 2.39 Urine osmolality pending. Serum osmolality is 268. Sodium MSK: Large right flank ecchymosis PT evaluate and treat gait assessment Left tib/fib shows no signs of fracture Access: -Utilize peripheral AP will discontinue right femoral central line 11/05 Prophylaxis -GI -pantoprazole -DVT -SCD/holding pharmacologic prophylaxis in light of elevated INR/PTT Level 3 follow-up (8) Altered mental status Qualifiers: Altered mental status type: delirium Qualified Code(s): R41.0 - Disorientation, unspecified
[2018-11-07] MEDS ORDERED: Magnesium Sulfate Inj 4 GM in Sodium Chlor 0.9% Inj 92 ML IV.SIG ONE (14:00)
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
[2018-11-07] MEDS: Multivitamin Inj 10 ML, Folic Acid Inj 1 MG in AA 4.25 %/D5W - Electrolytes 2,000 ML IV.SIG SCH (20:18)
[2018-11-08] MEDS: Dexmedetomidine Inj 200 MCG in Sodium Chlor 0.9% Inj 48 ML IV.CONT PRN ×3 (00:06→11:30)
[2018-11-08] MEDS: Dextrose 5%/NaCl 0.9% Inj 1,000 ML IV.CONT SCH ×2 (01:46→15:16)
[2018-11-08] MEDS: Chlorhexidine Gluconate 2% 1 Pack (2 Cloths) TOPICAL SCH (03:58)
[2018-11-08 05:48] LABS: Baso % (Auto) 0.4 % (0.0-2.0); Eos % (Auto) 0.1 % (0.0-4.0); Hematocrit 23.5 % (39.0-51.0); Hemoglobin 8.2 gm/dL (13.0-17.0); Lymph # (Auto) 0.4 th/mm3 (1.0-4.8); Lymph % (Auto) 17.4 % (9.0-44.0); Mean Corpuscular HGB Conc 34.8 % (32.0-36.0); Mean Corpuscular Volume 103.2 fL (80.0-100.0); Mean Platelet Volume 8.7 fL (7.0-11.0); Mono # (Auto) 0.2 th/mm3 (0.0-0.9); Mono % (Auto) 8.9 % (0.0-8.0); Neut # (Auto) 1.7 th/mm3 (1.8-7.7); Neut % (Auto) 73.2 % (16.0-70.0); Platelet Count 37 th/mm3 (150-450); Red Blood Count 2.27 mil/mm3 (4.50-5.90); Red Cell Distribution Width 21.8 % (11.6-17.2); White Blood Count 2.3 th/mm3 (4.0-11.0)
[2018-11-08 06:11] LABS: Alanine Aminotransferase 47 U/L (12-78); Albumin 1.8 g/dL (3.4-5.0); Alkaline Phosphatase 76 U/L (45-117); Anion Gap 7 meq/L (5-15); Aspartate Aminotransferase 85 U/L (15-37); Blood Urea Nitrogen 16 mg/dL (7-18); Calcium 7.4 mg/dL (8.5-10.1); Carbon Dioxide 23.8 meq/L (21.0-32.0); Chloride 106 meq/L (98-107); Glomerular Filtration Rate Greater Than 89 mL/min (>89); Glucose,Random 112 mg/dL (74-106); Lipase 170 U/L (73-393); Magnesium 2.1 mg/dL (1.5-2.5); Potassium 4.3 meq/L (3.5-5.1); Sodium 137 meq/L (136-145); Total Protein 6.5 g/dL (6.4-8.2)
[2018-11-08 06:30] LABS: Activated Partial Thrombo Time 41.8 sec (23.4-31.7); INR 1.8 Ratio; Prothrombin Time 18.1 sec (9.8-11.6)
[2018-11-08 06:34] LABS: Acanthocytes Occ; Burr Cells 1+; Platelet Morphology Normal (Normal)
[2018-11-08] MEDS: Pantoprazole Inj 40 MG Vial IV.PUSH SCH (09:27)
[2018-11-08] MEDS: Thiamine Inj 100 MG in Sodium Chlor 0.9% Inj 100 ML IV.SIG SCH (09:28)
[2018-11-08] MEDS: rifAXIMin 550 MG Tablet PO SCH (09:30)
[2018-11-08] MEDS: Senna/Docusate Sodium 8.6/50 MG Tablet PO SCH (09:30)
--- NOTE | 2018-11-08 09:38 | P.PNCC ---
Subjective Subjective Remarks/Hospital Course: This is a 53-year-old male. Admission 11/04/2018. Past medical history includes EtOH abuse and hypertension. He is unable to give any additional information the present time. His is currently unavailable. Today, the patient was pulled over because he was driving on the wrong side of the road. Paramedics brought him to [facility] emergency department for altered mental status. He reports that he used to be a heavy alcohol drinker but has not consumed alcohol in 3 days. Denies drug use. Denies headache or fever. He does not recognize that he is confused. He says that 4 days ago he fell off a ladder onto his left side. He did not get evaluated. His left side is covered in bruises including his abdomen and back and the left leg. He did not have head injury and has no head or neck pain. CT of the head revealed no acute intracranial findings. CT of the abdomen/ pelvis revealed mesenteric induration perinephric fat. The SMA and SMV are patent. Cannot rule out pancreatic head mass. Patient was transferred to [facility] for further evaluation treatment. On arrival, patient has large ecchymosis involving his left flank, right hip. Patient has an bites on his wrist bilaterally. He is oriented to person and time only. Not place. Moving all 4 extremity spontaneously. Blood sugar 78. Urine toxicology screen pending. 11/05: Receiving Ativan for agitation. Received cryoprecipitate overnight due to low fibrinogen. We will start on Precedex drip due to agitation. Confabulating. 11/06: Remains quite confused. Remains in soft restraints. Actively going through alcohol withdrawals. Plan for MRCP today. On dexmedetomidine drip at 0.3 mcg/kg/h 11/07: Again remains confused. Does answer yes/no questions. Remains soft restraints. Unable to do MRCP secondary to unable to hold breath. Remains on dexmedetomidine drip. SUBJECTIVE: 11/08: More awake and alert today. Not following commands. NG tube is in place. Will start trickle feeds today. Ammonia level is down to 37. Objective Vital Signs / I&O: Vital Signs 11/07/18 09:30 11/07/18 10:00 11/07/18 10:01 Temperature Pulse Rate 75 130 H 121 H Respiratory Rate 23 19 34 H Blood Pressure 108/57 L 114/56 L Pulse Oximetry 100 100 100 11/07/18 10:30 11/07/18 10:48 11/07/18 11:00 Temperature 97 F L Pulse Rate 77 74 71 Respiratory Rate 18 18 20 Blood Pressure 94/56 L 94/56 L 101/57 L Pulse Oximetry 92 L 100 100 11/07/18 11:15 11/07/18 11:30 11/07/18 12:00 Temperature 97.4 F L Pulse Rate 72 75 95 H Respiratory Rate 14 18 29 H Blood Pressure 96/58 L 99/56 L Pulse Oximetry 100 100 11/07/18 12:03 11/07/18 12:30 11/07/18 13:00 Temperature 97 F L Pulse Rate 76 71 67 Respiratory Rate 18 20 18 Blood Pressure 99/56 L 95/50 L 92/52 L Pulse Oximetry 100 100 100 11/07/18 13:30 11/07/18 14:00 11/07/18 14:30 Temperature Pulse Rate 65 77 71 Respiratory Rate 24 22 21 Blood Pressure 97/56 L 111/62 99/56 L Pulse Oximetry 98 93 L 97 11/07/18 14:51 11/07/18 15:00 11/07/18 15:30 Temperature Pulse Rate 80 74 74 Respiratory Rate 16 20 21 Blood Pressure 88/50 L 94/52 L Pulse Oximetry 96 98 11/07/18 16:00 11/07/18 16:30 11/07/18 17:00 Temperature 98.3 F Pulse Rate 64 63 62 Respiratory Rate 25 H 24 18 Blood Pressure 87/52 L 85/53 L 95/56 L Pulse Oximetry 96 96 97 11/07/18 17:30 11/07/18 18:00 11/07/18 18:30 Temperature Pulse Rate 60 59 L 59 L Respiratory Rate 22 22 21 Blood Pressure 87/51 L 82/52 L 85/50 L Pulse Oximetry 96 96 97 11/07/18 19:00 11/07/18 19:29 11/07/18 19:30 Temperature Pulse Rate 58 L 66 73 Respiratory Rate 22 22 21 Blood Pressure 86/51 L 107/62 Pulse Oximetry 96 97 98 11/07/18 20:00 11/07/18 20:30 11/07/18 21:00 Temperature 97.3 F L Pulse Rate 65 61 60 Respiratory Rate 19 20 23 Blood Pressure 96/55 L 86/51 L 90/53 L Pulse Oximetry 98 96 96 11/07/18 21:30 11/07/18 22:00 11/07/18 22:30 Temperature Pulse Rate 59 L 59 L 66 Respiratory Rate 21 21 23 Blood Pressure 88/53 L 87/51 L 108/66 Pulse Oximetry 97 97 98 11/07/18 23:00 11/07/18 23:20 11/07/18 23:30 Temperature Pulse Rate 57 L 57 L 78 Respiratory Rate 35 H 24 29 H Blood Pressure 84/54 L 103/63 Pulse Oximetry 96 98 11/08/18 00:00 11/08/18 00:30 11/08/18 01:00 Temperature Pulse Rate 123 H 66 59 L Respiratory Rate 21 21 34 H Blood Pressure 93/55 L 95/59 L 81/52 L Pulse Oximetry 98 98 97 11/08/18 01:30 11/08/18 02:00 11/08/18 02:30 Temperature Pulse Rate 57 L 55 L 74 Respiratory Rate 29 H 29 H 28 H Blood Pressure 82/50 L 85/50 L 119/72 Pulse Oximetry 97 97 97 11/08/18 03:00 11/08/18 03:30 11/08/18 03:35 Temperature Pulse Rate 57 L 55 L 71 Respiratory Rate 37 H 40 H 21 Blood Pressure 93/56 L 85/51 L Pulse Oximetry 97 96 11/08/18 04:00 11/08/18 04:01 11/08/18 04:30 Temperature Pulse Rate 56 L 57 L 55 L Respiratory Rate 38 H 30 H 37 H Blood Pressure 102/59 L 82/52 L Pulse Oximetry 98 97 98 11/08/18 05:00 11/08/18 05:18 11/08/18 05:30 Temperature Pulse Rate 56 L 81 62 Respiratory Rate 33 H 17 24 Blood Pressure 119/66 119/66 102/60 Pulse Oximetry 99 98 98 11/08/18 06:00 11/08/18 06:30 11/08/18 07:46 Temperature Pulse Rate 69 67 77 Respiratory Rate 20 26 H 18 Blood Pressure 99/59 L 92/62 L Pulse Oximetry 98 98 98 Intake & Output 11/07/18 11/08/18 11/08/18 18:59 06:59 18:59 Intake Total 2145.2 / 2145.2 2510.2 / 2510.2 Output Total 0 / 0 700 / 700 Balance 2145.2 / 2145.2 1810.2 / 1810.2 Weight 73 kg Intake: IV 1913.2 / 1913.2 2410.2 / 2410.2 Precedex Inj 200 MCG In NS Inj 150 / 150 150 / 150 48 ML @ 0.2 MCG/KG/HR 3.45 mls/ hr IV.CONT TITRATE PRN Rx#: [id number] D5W/Normal Saline Inj 1,000 ML 1000 / 1000 @ 100 mls/hr IV.CONT .Q10H [facility] Rx#:[id number] Intralipid 20% Inj 250 ML @ 10 250 / 250 mls/hr IV.SIG Q24H [facility] Rx#: [id number] Magnesium Sulfate Inj 4 GM In 100 / 100 NS Inj 92 ML @ 25 mls/hr IV.SIG ONCE ONE Rx#:[id number] MVI-12 Inj 10 ML Folvite Inj 1 2009.2 / 2009.2 MG In Clinimix E 4.25%/D5W Inj 2,000 ML @ 83 mls/hr IV.SIG Q24H [facility] Rx#:[id number] Vitamin K Inj 10 MG In NS Inj 51 / 51 50 ML @ 102 mls/hr IV.SIG ONCE ONE Rx#:[id number] Thiamine Inj 100 MG In NS Inj 101 / 101 100 ML @ 100 mls/hr IV.SIG DAILY [facility] Rx#:[id number] Oral 0 / 0 Tube Irrigant 100 / 100 Intake (Blood Product) Amt 232 / 232 Plasma Thawed 5 Day Acda Unit 0 / 0 [id number] Pre-Pooled Cryo Thawed 10units 232 / 232 Unit [id number] Output: Urine 0 / 0 Urine Amount (Catheter) 600 / 600 Straight 600 / 600 Gastric Drainage 100 / 100 Right Nare Nasogastric Tube 100 / 100 Result Diagrams: 11/08/18 04:50 11/08/18 04:50 Other Results: Microbiology 11/06/18 11:41 Blood - Peripheral Aerobic Blood Culture - Preliminary No growth in 1 day 11/06/18 11:41 Blood - Peripheral Anaerobic Blood Culture - Preliminary No growth in 1 day 11/06/18 11:29 Blood - Peripheral Aerobic Blood Culture - Preliminary No growth in 1 day 11/06/18 11:29 Blood - Peripheral Anaerobic Blood Culture - Preliminary No growth in 1 day 11/05/18 04:03 Clean Catch Urine Urine Culture - Final No growth in 48 hours Imaging: Liver Ultrasound 11/04/18 00:00 CONCLUSION: 1. Liver appears cirrhotic with mild lobulation. 2. Small right pleural effusion noted. 3. Mild ascites. Extensive gallbladder sludge. Common bile duct not visualized. 4. Probable bidirectional flow in the main portal vein. Abdomen/Pelvis CT 11/04/18 12:43 CONCLUSION: 1. I don't see an intrahepatic biliary duct dilatation. Induration in the mesentery and around the pancreas worse in the head of the pancreas. 2. Pancreatitis would be consideration 3. The edema extends throughout the mesentery suggesting portal hypertension and hepatic failure. Correlation suggested. 4. Focal mass in the pancreas cannot be entirely excluded because of edema. Chest X-Ray 11/04/18 12:43 CONCLUSION: 1. No acute cardiopulmonary disease. Head CT 11/04/18 12:43 CONCLUSION: 1. Negative for acute process . Tibia/Fibula X-Ray 11/04/18 12:48 CONCLUSION: 1. No acute fracture or radiopaque foreign bodies. Objective Remarks: GENERAL: 53-year-old male currently resting in bed in soft restraints SKIN: Warm and dry. Jaundice. Large right hip, left flank ecchymosis noted from prior fall. HEAD: Atraumatic. Normocephalic. EYES: Pupils equal and round about 3 mm bilaterally. + scleral icterus. No injection or drainage. ENT: No nasal bleeding or discharge. Mucous membranes pink and moist. NECK: Trachea midline. No JVD. CARDIOVASCULAR: Tachycardic, normal rhythm. S1, S2. No S4. RESPIRATORY: No accessory muscle use. Clear to auscultation. Breath sounds equal bilaterally. GASTROINTESTINAL: Abdomen distended, nontender. Ascites appreciated. Slight hepatic enlargement appreciated MUSCULOSKELETAL: Extremities without significant peripheral edema. No obvious deformities. See skin for Derm issues NEUROLOGICAL: Awake and not oriented. No obvious cranial nerve deficits. Motor grossly within normal limits. Five out of 5 muscle strength in the arms and legs. Answers yes/no questions. Opens eyes Assessment and Plan - Problem List (1) Hypopotassemia Code(s): E87.6 - Hypokalemia Status: Acute (2) Total bilirubin, elevated Code(s): R17 - Unspecified jaundice Status: Acute (3) Thrombocytopenia Code(s): D69.6 - Thrombocytopenia, unspecified Status: Acute (4) Macrocytic anemia Code(s): D53.9 - Nutritional anemia, unspecified Status: Acute (5) Hyperammonemia Code(s): E72.20 - Disorder of urea cycle metabolism, unspecified Status: Acute (6) Hypoalbuminemia Code(s): E88.09 - Other disorders of plasma-protein metabolism, not elsewhere classified Status: Acute (7) ETOH abuse Code(s): F10.10 - Alcohol abuse, uncomplicated Status: Acute (8) Altered mental status Code(s): R41.82 - Altered mental status, unspecified Status: Acute (9) Hyponatremia Code(s): E87.1 - Hypo-osmolality and hyponatremia Status: Acute (10) Alcoholic cirrhosis of liver with ascites Code(s): K70.31 - Alcoholic cirrhosis of liver with ascites Status: Acute (11) Elevated AST (SGOT) Code(s): R74.0 - Nonspecific elevation of levels of transaminase and lactic acid dehydrogenase [LDH] Status: Acute - Assessment and Plan Plan: Neuro/Psych: Acute encephalopathy likely secondary to elevated ammonia EtOH abuse CT brain revealed no acute intracranial abnormalities CIWA protocol initiated. Receiving lorazepam and dexamethasone drip Vitamin bag daily times 3 days. Then transition to thiamine 100 mg daily on No acetaminophen with elevated LFTs Monitor for DTs in ICU CV: Lactic acidosis Twice daily normal saline 1 L at [place]. As needed norepinephrine with current central lines in place Follow-up on lactate was 1.9, bili 3.0 Currently D5 normal saline at 100 cc an hour Holding propranolol 40 mg twice daily/home medication. Will need nitrates will likely when blood pressure tolerates Resp: Nasal cannula to maintain saturations greater than equal 92% Incentive spirometry while awake Albuterol/ipratropium aerosols every 4 hours with albuterol aerosols every 2 hours as needed dyspnea X-ray chest on admission revealed no acute acute cardia pulmonate findings GI: Elevated total bilirubin Elevated AST Elevated ammonia Hypoalbuminemia Mesenteric induration on CT abdomen/pelvis N.p.o. status except for medications and start trickle feeds with Nutren half at 10 cc an hour Pantoprazole for GI prophylaxis Docusate serum/senna 1 tablet twice daily for bowel regimen Xifaxan 550 mg twice daily. Lactulose 30 cc twice daily last ammonia level is 37 CT abdomen/pelvis revealed mesenteric induration along with peritoneal fat ulcer of the pancreas. No intra-hepatic biliary ductal dilatation. SMA/SMV are patent. Mesenteric edema significant of liver disease/portal hypertension Currently has no abdominal pain. GI consultation ordered for assistance in management plan MRCP today. Hepatitis panel negative. Multiple laboratories pending JOVON is positive. Check positive JOVON screening labs NG tube will be placed for lactulose and Xifaxan : Straight catheterization as needed Endo: Sliding scale insulin Accu-Cheks to maintain euglycemia/every 6 hours aspart insulin TSH was 2.39 Renal: Acute kidney injury unknown baseline resolved Monitor urine output Accurate I's and O's CT abdomen/pelvis revealed no signs of hydronephrosis Negative urine eosinophils, Heme: Macrocytic anemia Thrombocytopenia Coagulopathy Leukopenia Transfuse 2 units PRBCs 1 FFP and 1 cryoprecipitate since admission. 10 mg vitamin K IV x1 given today. Recheck coags in a.m. with fibrinogen Check CBC in a.m. 11/08 Hemoccult ordered Given 1 FFP 1 1 cryo and 10 mg vitamin K 11/07 ID: No signs of active bleeding. Monitor for signs of and symptomatology of infection FEN: Replace electrolytes as clinically indicated per ICU electrolyte protocol 4 g mag sulfate x1 Clinimix 4.25 at 83 cc an hour with lipids stable 4 g mag sulfate IV times Uric acid was 6.3. Cortisol 2.1. TSH 2.39 Urine osmolality pending. Serum osmolality is 268. Sodium MSK: Large right flank ecchymosis PT evaluate and treat gait assessment Left tib/fib shows no signs of fracture Access: -Utilize peripheral AP will discontinue right femoral central line 11/05 Prophylaxis -GI -pantoprazole -DVT -SCD/holding pharmacologic prophylaxis in light of elevated INR/PTT Level 3 follow-up (8) Altered mental status Qualifiers: Altered mental status type: delirium Qualified Code(s): R41.0 - Disorientation, unspecified
--- NOTE | 2018-11-08 10:49 | P.DIET ---
Nutritional Evaluation Type of nutrition evaluation: initial Nutrition consult regarding: TPN/PPN Nutrition screening: [facility] [place] Screening comments: 11/06 [facility] [place]N Objective - Diagnosis hyponatremia, heptic encephalopathy - Objective % IBW: 118 (IBW = 136lb) Body Weight Used for Calculations: Actual (69.1kg) Energy Needs - Lower Range (kCal/kg): 28 Energy Needs - Upper Range (kCal/kg): 32 Lower Limit kCal/kg (kCals): 1,935 Upper Limit kCal/kg (kCals): 2,211 Lower Limit Protein Factor (Grams per Kg): 1.2 Upper Limit Protein Factor (Grams per Kg): 1.4 Lower Protein Needs (Protein): 83 Upper Protein Needs (Protein): 97 Dietitian Reviewed in Medical Record: Curent medications, Intake & Output, Labs , Medical history, TPN/PPN, Tube feeding Diet Order: TPN/TF'ing Objective Comments: Meds MVI, folic acid, thiamine Labs: Ca+ 7.4, POC glucose 135 138, total chol 64, LDL 30, HDL 21.6 UOP 600mL Feeding - Current Tube Feeding Tube Feeding Product: Nutrihep Tube Feeding Rate: 10 (continuous) Tube Feeding Route: nasogastric Current kCals Provided by Tube Feedin Current Protein Provided by Tube Feeding (gPRO): 10 - Current TPN/PPN Current PPN: Clinimix E 4.25/5 Current TPN/PPN Rate (ml/hr): 83 Amino Acid and Dextrose Current kCals Provided: 680 Amino Acid and Dextrose Current Protein Provided: 85 Current Lipid Concentration: 20% Current Lipids Rate: Continuous rate of 10 mls/hr over 24 hours Current kCal Provided by TPN/PPN: 1,180 Carbohydrate Load (mg/kg/min): 1 (0.95mg/kg/min) Assessment Assessment: Pt receiving Clinimix E 4.25/5 PPN @ 83mL/hr w/ Intralipid 20% 250mL @ 10mL/hr for PPN. For TF'ing, pt receive Nutrihep w/ goal rate at 10mL/hr for trickle feeds. RD to recommend increasing TF'ing rate to Nutrihep @ 60mL w/ Beneprotein 1-pkt TID to provide 2235kcal, 76g of protein, and 1094mL of free water, advance TF as tolerated. Plan to hold PPN lipids when pt able to receive 60% of energy and protein needs from TF'ing. Free water flushes per MD. Continue to monitor glucose levels. Labs reviewed. Dietitian following. Recommendations: 1. Clinimix E 4.25/5 PPN @ 83mL/hr w/ Intralipid 20% 250mL @ 10mL/hr for PPN per MD 2. RD to recommend increasing TF'ing rate to Nutrihep @ 60mL w/ Beneprotein 1- pkt TID, advance TF as tolerated 3. Plan to hold PPN lipids when pt able to receive 60% of energy and protein needs from TF'ing 4. Free water flushes per MD 5. Continue to monitor glucose levels 6. Dietitian following Dietitian to Monitor: Lab values, Glucose level, Intake & Output, Tube feeding tolerance, TPN/PPN tolerance, Medical course
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
[2018-11-08 14:27] LABS: Anti-Nuclear Antibody Pattern Speckled
[2018-11-08] MEDS ORDERED: Magnesium Citrate Liq 300 ML Bottle PO ONE (17:15)
--- NOTE | 2018-11-08 17:18 | XR ---
EXAM DATE: 11/08/2018 5:13 PM EST AGE/SEX: 53 years / Male INDICATIONS: Distention. CLINICAL DATA: This is the patient's initial encounter. Patient reports that signs and symptoms have been present for 1 day and indicates a pain score of Nonresponsive. MEDICAL/SURGICAL HISTORY: None. None. COMPARISON: No prior exams available for comparison. FINDINGS: 2 AP supine views of the abdomen were obtained and demonstrate a nasogastric tube in place with the tip in the proximal stomach. There is mild gaseous distention of the ascending colon and transverse c olon. There is no evidence of free air or mass effect. The bony structures are intact. The lung bases are clear. The heart size appears enlarged. CONCLUSION: 1. Mild gaseous dilatation of the descending colon and transverse colon with no definite obstruction . 2. Nasogastric tube in place. Electronically signed by: Gurpreet Angeles MD Board Certified Radiologist 11/08/2018 5:17 PM EST
[2018-11-08] MEDS ORDERED: Methylnaltrexone Inj 12 MG/0.6 ML Vial SQ ONE (18:00)
[2018-11-08] MEDS ORDERED: Etomidate Inj 40 MG/20 ML Vial IV.PUSH ONE (18:59)
[2018-11-08] MEDS ORDERED: Succinylcholine Inj 200 MG/10 ML Vial ONE ×2 (19:01→20:59)
[2018-11-08] MEDS ORDERED: Succinylcholine Inj 100 MG/5 ML Syringe IV.PUSH ONE ×2 (19:02→21:41)
[2018-11-08] MEDS ORDERED: fentaNYL 10 mcg/mL Premix Drip 2,500 MCG/250 ML BAG IV.SIG PRN (19:10)
[2018-11-08] MEDS ORDERED: Pantoprazole Inj 40 MG Vial IV.PUSH ONE (19:48)
[2018-11-08] MEDS ORDERED: Albumin Human 25% Inj 100 ML IV.SIG ONE (19:49)
--- NOTE | 2018-11-08 19:51 | XR ---
EXAM DATE: 11/08/2018 7:48 PM EST AGE/SEX: 53 years / Male INDICATIONS: Respiratory failure. CLINICAL DATA: This is the patient's subsequent encounter. Patient reports that signs and symptoms h ave been present for 1 day and indicates a pain score of Nonresponsive. MEDICAL/SURGICAL HISTORY: None. None. COMPARISON: [facility], CHEST 1V SINGLE AP, 11/04/2018. . FINDINGS: NG tube is present with tip in the stomach. ET tube is present with tip overlapping approximately 2 above the howie. Bibasilar opacities are present may be due to a combination of consolidation and or pleural effusion. CONCLUSION: Bibasilar opacities are present may be due to a combination of consolidation and or pleural effusion not present previously . Electronically signed by: Karishma Marshall MD Board Certified Radiologist 11/08/2018 7:50 PM EST
[2018-11-08] MEDS ORDERED: Sodium Chlor 0.9% Inj 250 ML IV.SIG ONE (20:00)
[2018-11-08] MEDS ORDERED: Chlorhexidine 0.12% Oral Kit 15 ML UDC OROPHARYNG SCH (20:00)
[2018-11-08] MEDS ORDERED: Octreotide Inj 500 MCG/ML Vial IV.CONT SCH (20:00)
[2018-11-08] MEDS ORDERED: Pantoprazole Inj 80 MG in Sodium Chlor 0.9% Inj 100 ML IV.CONT SCH (20:00)
[2018-11-08] MEDS ORDERED: Gelatin 12 MM/7 MM Topical Foam ONE ×2 (20:04→20:05)
[2018-11-08] MEDS ORDERED: DOPamine 800 MG/500 ML Premix 800 MG/500 ML PLAST..BAG IV.CONT PRN (20:18)
[2018-11-08] MEDS ORDERED: Calcium Gluconate Inj 1 GM in Dextrose 5% in Water Inj 100 ML IV.SIG ONE ×2 (20:25)
[2018-11-08] MEDS ORDERED: Sodium Chlor 0.9% Inj 250 ML IV.SIG PRN (20:26)
[2018-11-08 20:41] LABS: ABG Base Excess -10.9 mmol/L (-2-2); ABG PCO2 40 mmHg (38-42); ABG PO2 66 mmHG (61-120)
[2018-11-08] MEDS ORDERED: Octreotide Inj 500 MCG in Sodium Chlor 0.9% Inj 500 ML IV.CONT SCH (21:00)
[2018-11-08] MEDS ORDERED: Sodium Chlor 0.9% Inj 250 ML IV.SIG SCH (21:00)
[2018-11-08] MEDS ORDERED: Polyethylene Glycol 3350 17 GM Packet PO SCH (21:00)
[2018-11-08 21:46] LABS: Hematocrit 28.7 % (39.0-51.0); Hemoglobin 9.7 gm/dL (13.0-17.0); Mean Corpuscular HGB Conc 33.8 % (32.0-36.0); Mean Corpuscular Hemoglobin 30.7 pg (27.0-34.0); Mean Corpuscular Volume 90.8 fL (80.0-100.0); Mean Platelet Volume 7.3 fL (7.0-11.0); Platelet Count 27 th/mm3 (150-450); Red Blood Count 3.16 mil/mm3 (4.50-5.90); Red Cell Distribution Width 17.6 % (11.6-17.2); White Blood Count 2.1 th/mm3 (4.0-11.0)
[2018-11-08 22:04] LABS: INR 2.9 Ratio; Prothrombin Time 29.3 sec (9.8-11.6)
[2018-11-08] MEDS ORDERED: Calcium Chloride Inj 1 GM in Dextrose 5% in Water Inj 100 ML IV.SIG ONE ×2 (22:15)
[2018-11-08 22:22] LABS: Anion Gap 16 meq/L (5-15); Blood Urea Nitrogen 16 mg/dL (7-18); Calcium 5.9 mg/dL (8.5-10.1); Carbon Dioxide 15.2 meq/L (21.0-32.0); Chloride 110 meq/L (98-107); Glomerular Filtration Rate Greater Than 89 mL/min (>89); Glucose,Random 143 mg/dL (74-106); Magnesium 1.5 mg/dL (1.5-2.5); Potassium 4.2 meq/L (3.5-5.1)
--- NOTE | 2018-11-08 22:25 | XR ---
EXAM DATE: 11/08/2018 10:18 PM EST AGE/SEX: 53 years / Male INDICATIONS: Right IJ catheter placement and esophageal balloon. CLINICAL DATA: This is the patient's initial encounter. Patient reports that signs and symptoms have been present for 1 day and indicates a pain score of Nonresponsive. MEDICAL/SURGICAL HISTORY: None. None. COMPARISON: [facility] [place]ST 1V SINGLE AP, 11/08/2018. . FINDINGS: ETT is in the very proximal right mainstem bronchus. There is a Federico tube coursing beyond the GE j unction with tip omitted from the image. There is a kinked right IJ introducer sheath with tip at the confluence of the subclavian vein. Bilateral lower lobe pleural-parenchymal opacities. Cardiomediast inal contours are within normal limits. Bony thorax is intact. CONCLUSION: 1. ETT in the proximal right mainstem bronchus. 2. Federico tube coursing beyond the GE junction. 3. Right IJ introducer tip at the confluence of the subclavian vein. It appears kinked near the veno duane site. 4. Bilateral small pleural effusions with associated airspace disease at the lung bases. Electronically signed by: Avni Cárdenas MD Board Certified Radiologist 11/08/2018 10:24 PM E
--- NOTE | 2018-11-08 22:40 | P.PNCC ---
Critical Care Event Note Code activated: Yes Narrative: This case had a high probability of a clinically significant, sudden, or life threatening deterioration of this patient's condition which required my full and direct attention, intervention and personal management. I was called to the bedside by RN at 18:50 when the patient was noted to have hematemesis and worsening encephalopathy. He was receiving bag mask ventilations by RT on my arrival and the decision was made to intubate the patient for airway protection. I did not see an obvious source of bleeding during intubation but a large amount of bright red blood was suctioned from his oropharynx. His BP was low with MAPs in the 40s so peripheral levophed was started and I emergently placed a right femoral triple lumen catheter under ultrasound guidance. He continued to decompensate and required levophed and dopamine. I sent a stat GEM which showed that the patient's hemoglobin had already dropped about a gram with a base deficit of 10. He had over 700 cc of dark blood drained from his NGT. I spoke with Dr. Ronquillo of GI as I was concerned about variceal bleeding; the patient was given boluses/ started on drips of octreotide and protonix. I then placed a RIJ Cordis introducer and a massive transfusion protocol was initiated. A Sengstaken-Blakmore tube was placed emergently by GI with my assistance. I also placed bilateral anterior/ posterior nasal packing as the patient had bleeding from his nose with no clear source of hemorrhage. Despite all of these interventions, the patient continued to hemorrhage, and I discussed the case with Dr. Cárdenas of interventional radiology. We both agreed that a TIPS would be contraindicated as the patient was initially admitted for hepatic encephalopathy. Furthermore, with his ongoing blood loss and oozing from around all catheter and peripheral IV sites, I believe the patient was in DIC and therefore a transhepatic procedure would be similarly contraindicated. I also attempted high-dose vasopressin and tranexamic acid without improvement. The patient went into PEA arrest and CPR was initiated; he received several rounds of chest compressions, epinephrine, bicarb, and calcium but did not regain a pulse and was noted to be in asystole on recheck. The patient was pronounced at 22:25. I spoke with the patient' s several times during this evening regarding all of these events. Total critical care time 130 minutes, including management of vent settings, coordination of massive transfusion, management of multiple drips, discussion with consultants, and re-evaluation at multiple intervals. This does not include procedures, teaching, or family updates. Critical care time: 105 - 134 mins
--- NOTE | 2018-11-08 22:44 | P.PCN ---
Date of procedure: 11/08/18 Pre-op diagnosis: acute hypoxic respiratory failure Post-op diagnosis: same Procedure: Endotracheal intubation The patient was receiving bag mask ventilations with pulse ox in the 70s/80s and required intubation for airway protection. He was placed in the supine position and given succinylcholine prior to procedure. An 8-0 ETT was placed under Glidescope guidance without difficulty and secured at 26 cm at the teeth. He had bilateral breath sounds, absence of gastric air sounds, improvement in pulse ox, and color change capnography following intubation. A CXR showed that the tube was in adequate position. He tolerated the procedure well with no immediate complications. Surgeon: [place] Condition: critical Disposition: ICU
--- NOTE | 2018-11-08 22:46 | P.PCN ---
Date of procedure: 11/08/18 Pre-op diagnosis: acute hemorrhagic shock Post-op diagnosis: same Procedure: Right femoral triple lumen catheter A time out was called and the patient was identified using 2 hospital identifiers. He was prepped with Chlorhexidine and allowed to completely dry, then draped in sterile manner. A right femoral triple lumen catheter was placed under sterile ultrasound guidance, all 3 ports returned blood and were flushed with sterile saline, the catheter was secured with a Stat-lock, and a Biopatch and sterile dressing were applied. The patient tolerated the procedure well and had post-procedure oozing noted around the site. Surgeon: [place] Condition: critical Disposition: ICU
[2018-11-08 22:47] LABS: Albumin 1.6 g/dL (3.4-5.0); Calcium-Albumin Corrected 7.8 mg/dL (8.5-10.1)
--- NOTE | 2018-11-08 22:48 | P.PCN ---
Date of procedure: 11/08/18 Pre-op diagnosis: Acute hemorrhagic shock Post-op diagnosis: same Procedure: Right IJ Cordis introducer insertion A time out was called and the patient was identified using 2 hospital identifiers. He was prepped with Chlorhexidine and allowed to completely dry, then draped in sterile manner. A right IJ Cordis sheath introducer was placed under sterile ultrasound guidance, the port returned blood and was flushed with sterile saline, the catheter was secured with a Stat-lock, and a Biopatch and sterile dressing were applied. The patient tolerated the procedure well and had post-procedure oozing noted around the site. Surgeon: [place] Condition: critical Disposition: ICU
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
[2018-11-08 22:56] LABS: Sodium 141 meq/L (136-145)
[2018-11-08] MEDS ORDERED: Tranexamic Acid Inj 1,000 MG in Sodium Chlor 0.9% Inj 100 ML IV.SIG SCH (23:00)
[2018-11-08] MEDS ORDERED: Vasopressin Inj 40 UNIT in Sodium Chlor 0.9% Inj 98 ML IV.CONT SCH (23:00)
[2018-11-09] MEDS ORDERED: Oral Hygiene Kit OROPHARYNG SCH
[2018-11-09] MEDS: Multivitamin Inj 10 ML, Folic Acid Inj 1 MG in AA 4.25 %/D5W - Electrolytes 2,000 ML IV.SIG SCH (02:00)
[2018-11-09] MEDS: rifAXIMin 550 MG Tablet PO SCH (02:01)
[2018-11-09] MEDS: Senna/Docusate Sodium 8.6/50 MG Tablet PO SCH (02:01)
[2018-11-09] MEDS: Dextrose 5%/NaCl 0.9% Inj 1,000 ML IV.CONT SCH (02:02)
== END 2018-11-08 22:25 | disposition expired ==
LOC: PHED 12:10 → PHEDH 15:56 → HIMC 17:15
PROVIDERS: ADMIT Internal Medicine Critical Care Medicine; ATTEND Internal Medicine Critical Care Medicine